=== PATIENT | female | born 1930 | race Caucasian/White ===

== ENCOUNTER → 2017-06-18 13:51 | Outpatient (CLI) | payer MEDICARE ==
[2016-08-25 13:46] VITALS: BMI 27.3
[~2017-06-18 13:51] MED LIST: ADOXA100 MG PO; ADVAIR 250/501 DISK INH; BAYER CHEWABLE81 MG PO; BETAPACE 120 M120 MG PO; CALCIUM OYS SHE1 TAB PO; COZAAR100 MG PO; EZFE 200200 MG PO; FESO4 PO; HYDROCODON-ACE1 EAC7 PO; ICAPS AREDS1 TAB.SA PO; K-DUR20 MEQ PO; LASIX20 MG PO; LASIX40 MG PO; LEVAQUIN250 MG PO; LEVOTHROID125 MCG PO; LIPITOR40 MG PO; METOPROLOL TAR100 MG PO; NORCO 7.5-3251 EACH PO; NORVASC5 MG PO; PACERONE100 MG PO; PACERONE200 MG PO; SAVAYSA PO; VITAMIN D31000 UNIT PO; ZOCOR40 MG PO
== END | disposition home or self-care (01) ==
LOC: D.MAMMO 11:00
DX: Z12.31 Encounter for screening mammogram for malignant neoplasm of breast (principal)

== ENCOUNTER → 2017-07-10 20:33 | Outpatient (CLI) | payer MEDICARE ==
[2016-08-25 13:46] VITALS: BMI 27.3
== END | disposition home or self-care (01) ==
LOC: D.MAMMO 13:30
DX: R92.8 Other abnormal and inconclusive findings on diagnostic imaging of breast (principal)

== ENCOUNTER 2017-08-16 13:06 | Emergency (ER) | payer MEDICARE ==
[2016-08-25 13:46] VITALS: BMI 27.3
== END 2017-08-16 15:58 | disposition home or self-care (01) ==
LOC: D.ER 13:06
DX: S16.1XXA Strain of muscle, fascia and tendon at neck level, initial encounter (principal); W19.XXXA Unspecified fall, initial encounter; Y93.89 Activity, other specified; Y92.029 Unspecified place in mobile home as the place of occurrence of the external cause; S09.90XA Unspecified injury of head, initial encounter

== ENCOUNTER → 2017-10-12 14:12 | Outpatient (CLI) | payer MEDICARE ==
[2016-08-25 13:46] VITALS: BMI 27.3
== END | disposition home or self-care (01) ==
LOC: D.MAMMO 09:30
DX: R92.8 Other abnormal and inconclusive findings on diagnostic imaging of breast (principal)

== ENCOUNTER 2017-10-26 12:41 | Emergency (ER) | payer MEDICARE ==
[2016-08-25 13:46] VITALS: BMI 27.3
[2017-10-26 13:37] LABS: BASOPHILS 0.1 % (0-2); EOSINOPHILS 0.4 % (0-7); HEMATOCRIT 40.1 % (36.0-48.0); HEMOGLOBIN 13.1 g/dL (12-16); IMMATURE GRANULOCYTES 0.1 % (0-5); LYMPHOCYTES 22.7 % (15-50); MCHC 32.7 g/dL (31.0-37.0); MCV 94.8 fL (80.0-100.0); MEAN PLATELET VOLUME 11.7 fL (7.4-10.4); MONOCYTES 8.9 % (2-11); NEUTROPHILS 67.8 % (40-80); PLATELET COUNT 133 10x3/uL (130-400); RBC 4.23 10x6/uL (4.00-5.40); RDW 15.2 % (11.5-14.5); WBC 7.1 10x3/uL (4.8-10.8)
[2017-10-26 14:04] LABS: ALBUMIN 3.8 g/dL (3.4-5.0); ALKALINE PHOSPHATASE 57 U/L (46-116); ALT (SGPT) 18 U/L (10-68); CALC OSMOLALITY 292 mosm/kg (275-300); CALCIUM 9.3 mg/dL (8.5-10.1); CARBON DIOXIDE 26.7 mmol/L (21.0-32.0); CHLORIDE - SERUM 104 mmol/L (98-107); CREATININE - SERUM 2.2 mg/dL (0.6-1.3); GLUCOSE 114 mg/dL (74-106); POTASSIUM - SERUM 4.7 mmol/L (3.5-5.1); SODIUM 141 mmol/L (136-145); UREA NITROGEN 44 mg/dL (7-18); eGFR NON AFRICAN AMERICAN 22 mL/min (90-120)
[2017-10-26 14:12] LABS: CREATINE KINASE 60 UL (21-215); PRO BNP 14827 pg/mL (0-450); TROPONIN-I < 0.017 ng/mL (0.000-0.060)
[2017-10-26 14:21] LABS: INR 2.05 (0.85-1.17); PROTIME 22.6 SECONDS (11.6-15.0)
== END 2017-10-26 15:07 | disposition home or self-care (01) ==
LOC: D.ER 12:41
PROVIDERS: Family Medicine; Nurse Practitioner Family
DX: R00.1 Bradycardia, unspecified (principal); T44.7X5A Adverse effect of beta-adrenoreceptor antagonists, initial encounter; Y92.019 Unspecified place in single-family (private) house as the place of occurrence of the external cause; I50.9 Heart failure, unspecified; Z86.79 Personal history of other diseases of the circulatory system; I44.0 Atrioventricular block, first degree

== ENCOUNTER 2017-12-24 09:37 | Day surgery (SDC) | payer MEDICARE ==
[2017-12-23 10:34] LABS: BASOPHILS 0.2 % (0-2); EOSINOPHILS 3.5 % (0-7); HEMATOCRIT 26.8 % (36.0-48.0); HEMOGLOBIN 8.4 g/dL (12-16); IMMATURE GRANULOCYTES 0.1 % (0-5); LYMPHOCYTES 28.3 % (15-50); MCH 29.2 pg (26.0-34.0); MCHC 31.3 g/dL (31.0-37.0); MCV 93.1 fL (80.0-100.0); MEAN PLATELET VOLUME 9.6 fL (7.4-10.4); MONOCYTES 8.1 % (2-11); NEUTROPHILS 59.8 % (40-80); RBC 2.88 10x6/uL (4.00-5.40); RDW 15.9 % (11.5-14.5)
[2017-12-23 10:35] LABS: PLATELET COUNT 216 10x3/uL (130-400)
[2017-12-23 11:23] LABS: ANION GAP 18.2 mmol/L (8-16); CALCIUM 9.3 mg/dL (8.5-10.1); CARBON DIOXIDE 21.5 mmol/L (21.0-32.0); CREATININE - SERUM 1.7 mg/dL (0.6-1.3); POTASSIUM - SERUM 3.7 mmol/L (3.5-5.1)
[~2017-12-24] VITALS: Ht 170.2 cm; Wt 70.3 kg
--- NOTE | ~2017-12-24 | OP ---
PATIENT NAME: CRIS RUANO MEDICAL RECORD: [id number] :31 LOCATION:[facility] ADMISSION DATE: SURGEON: ALVARADO SINGLETON DATE OF OPERATION: 12/24/2017 SURGEON: Alvarado Singleton DPM PREOPERATIVE DIAGNOSIS: Osteomyelitis, second metatarsal, right foot. POSTOPERATIVE DIAGNOSIS: Osteomyelitis, second metatarsal, right foot. PROCEDURE: Transmetatarsal amputation, right foot. ANESTHESIA: Local with monitored anesthesia care. HEMOSTASIS: Pneumatic ankle tourniquet inflated to 250 mmHg. ESTIMATED BLOOD LOSS: Minimal. MATERIALS: A 3-0 Vicryl, 3-0 nylon. INJECTABLES: A 20 cc of 0.5% bupivacaine preoperatively. The patient has longstanding history of an ulceration associated with the plantar surface of the right foot. On her most recent visit, the ulceration had deepened and bone was exposed. We have discussed with her the nature of this condition, the proposed procedure, risks and benefits were reviewed. Complications were discussed and her questions were answered. She was appropriately consented for the above-mentioned procedure. The patient has previously undergone a partial first ray amputation. This was done several years ago and healed up uneventfully. DESCRIPTION OF PROCEDURE: The patient was brought in the operating room and placed on the operating table in supine position. A timeout was called with Dr. Singleton, who identified the patient, the surgical site, and the surgery to be performed. Once appropriate anesthesia was obtained, the foot was prepped and draped in the usual aseptic manner. The pneumatic ankle tourniquet was inflated to 250 mmHg on the well-padded right ankle. Attention was directed to the distal aspect of the right foot where a full-thickness fishmouth incision was made at the level of the metatarsal heads. This incision was carried deep through soft tissue with care being taken to retract any vital, neurovascular structures. All bleeders were cauterized and tied as necessary. Utilizing a freer elevator and osteotome, the periosteum was reflected from the dorsal aspect of the residual first metatarsal and the second through fifth metatarsals. Next, utilizing the sagittal saw, each metatarsal was transected from dorsal distal to proximal plantar. The each individual metatarsal section was then removed. The soft tissue attachments were sharply dissected free and the forefoot was passed from the field and sent to pathology. The surgical site was then inspected for any remaining pathological tissue and none was noted. The metatarsal parabola was then remodeled with a sagittal saw as necessary to facilitate closure. The pneumatic ankle tourniquet was then OPERATIVE REPORT [id number] CRIS RUANO deflated and utilizing cautery and hand ties, all bleeders were appropriately ligated and cauterized. The surgical site was then irrigated with copious amounts of normal sterile saline via bulb syringe. The surgical site was then reinspected for any remaining necrotic tissue or purulent material and none was noted. The subQ and deeper structures were reapproximated and coapted utilizing 3-0 Vicryl. The skin was then reapproximated and coapted utilizing 4-0 and 3-0 nylon. A dressing consisting of Xeroform, 4 x 4's, Kerlix, and an Reyes bandage was applied to the right foot. The patient tolerated the procedure and anesthesia well. She left the operating room with vital signs stable and capillary refill time intact. The patient was discharged home with instructions to elevate the right foot. She has a walker and postop shoe to help offload the foot. I have discussed with her the importance of staying off the foot and we will follow up with her in 4 days. There are no complications with this procedure and she has my cell phone number for any after hour difficulties. TRANSINT:[id number] Voice Confirmation ID: [id number] DOCUMENT ID: [id number] ALVARADO SINGLETON at 1200 CC: [id number] DICTATION DATE: 12/24/17 164 HOSPITAL DIRECTOR: 12/24/17 1717 [facility] 12/24/17 [place] [id number]
[~2017-12-24 09:37] MED LIST changes: +COREG12.5 MG PO; +ELIQUIS2.5 MG PO; +FUROSEMIDE20 MG PO; +LEVOTHYROXINE112 MCG PO
[2017-12-24 10:50] VITALS: BP 122/70; Ht 170.2 cm; Wt 70.3 kg
== END 2017-12-24 15:03 | disposition home or self-care (01) ==
LOC: D.OPS 09:37 → D.PAN 11:30 → D.OPS 11:30
PROVIDERS: Anesthesiology
DX: M86.171 Other acute osteomyelitis, right ankle and foot (principal); Z01.812 Encounter for preprocedural laboratory examination

== ENCOUNTER 2018-03-16 09:26 | Outpatient (CLI) | payer MEDICARE ==
[~2018-03-16] VITALS: Ht 168.9 cm; Wt 79.1 kg
[2018-03-16 12:09] VITALS: Ht 168.9 cm; Wt 79.1 kg
== END 2018-03-16 16:50 | disposition home or self-care (01) ==
LOC: D.OPS 09:26
DX: D64.9 Anemia, unspecified (principal); Z01.812 Encounter for preprocedural laboratory examination

== ENCOUNTER 2018-05-11 11:46 | Day surgery (SDC) | payer MEDICARE ==
[~2018-05-11] VITALS: Ht 168.9 cm; Wt 76.8 kg
--- NOTE | ~2018-05-11 | OP ---
PATIENT NAME: CRIS RUANO MEDICAL RECORD: [id number] :31 LOCATION:[facility] ADMISSION DATE: SURGEON: LUIZA BUNN MD DATE OF OPERATION: 05/11/2018 PROCEDURE: Colonoscopy with snare polypectomy. Colonoscopy with polypectomy with hot biopsy forceps. CAREGIVER ASSISTED LIVING: Luiza Bunn MD SCOPE: Olympus video colonoscope. MEDICATIONS: Per TIVA anesthesia. The patient has atrial fibrillation, as part of her comorbidity profile, she received 220 mg of propofol IV throughout the procedure, O2 4 liters and after the procedure, received 500 mg of Flagyl as she had a significant polyp removed during this procedure. FINDINGS: Informed consent was given. The patient was made comfortable with the above medications. After reaching an adequate level of sedation by slow IV push, the patient was placed on her left side. The rectal exam revealed good sphincter tone, no fissures or fistulas were appreciated. No external skin tags were seen. The colonoscope was advanced with some difficulty to the cecum where the ileocecal valve and appendiceal orifice were identified. On withdrawal of the scope, mucosa was carefully inspected. The patient was noted to have pandiverticulosis without diverticulitis to a very small degree throughout the entire colon. Additionally, at 70 cm within the hepatic flexure, a 1-cm polyp was seen and removed with hot biopsy forceps technique. With further withdrawal of the scope, the patient was seen to have a 4 cm polyp at 20 cm within the colon, which was removed piecemeal with a snare. Not all of the polyp was removed, just some very small amount remained. This will need to be removed at another date. Of note, the patient had significant spasm, which could be associated with irritable bowel syndrome within the left side of the colon and very dense adhesions were seen in the pelvic area adding to the difficulty of this procedure. On retroflexion and final withdrawal of the scope, hemorrhoids were observed. The scope was then withdrawn. IMPRESSION: 1. Pandiverticulosis without diverticulitis to a small degree throughout the colon. 2. Adhesions very dense in the pelvic area adding to the difficulty of this procedure. 3. Marked spasm in the colon, most pronounced on the left side. 4. Two polyps removed during this procedure. The first at 70 cm within the colon at the hepatic flexure, 0.5 cm in size, removed with hot biopsy forcep technique. 5. A 4 cm polyp very hemorrhagic in appearance, removed piecemeal with the snare in the sigmoid colon at 20 cm. 6. Both internal and external hemorrhoids with very poor anal sphincter tone. PLAN: 1. No aspirin or anti-inflammatory drugs times 14 days. 2. We will call Dr. Liu to see if we can safely hold the Eliquis for 5 additional days. 3. Probiotics. 4. High fiber diet. OPERATIVE REPORT [id number] CRIS RUANO TRANSINT:[id number] Voice Confirmation ID: [id number] DOCUMENT ID: [id number] LUIZA BUNN MD at 1215 CC: MILDRED ATKINSON and ISSA LIU [id number] DICTATION DATE: 05/11/18 1603 ELECTRONICS INSTRUCTOR: 05/11/[address] [facility] 05/11/18 [place] [id number] [place] [address]
[2018-05-11 12:33] LABS: ANION GAP 15.3 mmol/L (8-16); CALCIUM 8.6 mg/dL (8.5-10.1); CARBON DIOXIDE 25.5 mmol/L (21.0-32.0); CREATININE - SERUM 1.6 mg/dL (0.6-1.3); POTASSIUM - SERUM 3.8 mmol/L (3.5-5.1)
[2018-05-11] MEDS ORDERED: BETAPACE 80 MG80 MG PO (12:36)
[2018-05-11] MEDS ORDERED: PROTONIX40 MG PO (12:37)
[2018-05-11 12:46] VITALS: Ht 168.9 cm; Wt 76.8 kg
[2018-05-11 13:33] LABS: APTT 30.2 SECONDS (22.8-39.4); INR 1.33 (0.85-1.17)
== END 2018-05-11 17:50 | disposition home or self-care (01) ==
LOC: D.OPS 11:46
PROVIDERS: Anesthesiology
DX: K57.30 Diverticulosis of large intestine without perforation or abscess without bleeding (principal); D12.3 Benign neoplasm of transverse colon; D12.5 Benign neoplasm of sigmoid colon; Z86.010 Personal history of colon polyps; I48.91 Unspecified atrial fibrillation; K58.9 Irritable bowel syndrome, unspecified; K64.8 Other hemorrhoids; K64.4 Residual hemorrhoidal skin tags; N73.6 Female pelvic peritoneal adhesions (postinfective); Z01.812 Encounter for preprocedural laboratory examination

== ENCOUNTER 2018-05-13 09:51 | Day surgery (SDC) | payer MEDICARE ==
[~2018-05-13] VITALS: Ht 168.9 cm; Wt 74.5 kg
--- NOTE | ~2018-05-13 | OP ---
PATIENT NAME: CRIS RUANO MEDICAL RECORD: [id number] :31 LOCATION:[facility] ADMISSION DATE: SURGEON: LUIZA BUNN MD DATE OF OPERATION: 05/13/2018 PROCEDURE: EGD with biopsy. THREAD SINGER: Luiza Bunn MD SCOPE: Olympus video gastroscope. MEDICATIONS: Per TIVA anesthesia. The indication for TIVA is the patient with atrial fibrillation, chronic obstructive lung disease, hypertension, and kidney problems. She is on Eliquis and aspirin. INDICATION FOR THE PROCEDURE: Guaiac-positive stool, melenic stool, and anemia with blood loss. FINDINGS: Informed consent was given. The patient was made comfortable with the above medications. After reaching an adequate level of sedation by slow IV push, the patient was placed on her left side. The endoscope was then advanced under direct visualization through the posterior pharyngeal area and advanced to the distal esophagus. At the distal esophageal area, erosions, erythema, and edema were appreciated. Biopsies were obtained. We then advanced the scope to the gastric area and explored the mucosa thoroughly. The patient was noted to first have a hiatal hernia, which was considered to be small and seen on direct and retroflex views. At the antral area, multiple small nonhemorrhagic gastric ulcers were appreciated and biopsies were obtained. Erosions were also noted. The duodenal bulb had inflammation as well as ulcerations present. The second portion of the duodenum had fairly normal tissue. On withdrawal of the scope, a biopsy was taken within the duodenal bulb at an ulcer surround. We also biopsied the antrum and the GE junction lower third. The scope was then withdrawn. IMPRESSION: 1. Erosive esophagitis. 2. Small hiatal hernia. 3. Erosive gastritis. 4. Multiple gastric ulcers at the antral area. 5. Duodenal bulbar nonhemorrhagic ulcers. 6. Normal tissue in the second portion of the duodenum. PLAN: 1. The patient should continue her Protonix at a dose of 40 mg p.o. q.a.m. and add famotidine 40 mg p.o. at bedtime. Repeat the EGD in 8 weeks to document healing of ulcers. 2. Reflux precautions should be followed stringently, both dietary and positional. No anti-inflammatory drugs. 3. We will contact Dr. Liu to see if the patient can hold her Eliquis and aspirin a couple more days. She has been off of it for 6 days, and 2 days ago, had a colonoscopy with removal of a very large 4-cm polyp. This is at risk for bleeding as well as the ulcers which were noted today. TRANSINT:[id number] Voice Confirmation ID: [id number] DOCUMENT ID: [id number] OPERATIVE REPORT [id number] CRIS RUANO BRENDA MD at 1215 CC: MILDRED ATKINSON and ISSA LIU [id number] DICTATION DATE: 05/13/18 1240 MOTORCYCLE REPAIR SHOP SUPERVISOR: 05/13/18 1323 [facility] 05/13/18 [place] [id number] [place] [address]
[~2018-05-13 09:51] MED LIST changes: +BETAPACE 80 MG80 MG PO; +PROTONIX40 MG PO
[2018-05-13 10:41] LABS: ANION GAP 15.3 mmol/L (8-16); CALCIUM 8.4 mg/dL (8.5-10.1); CARBON DIOXIDE 23.6 mmol/L (21.0-32.0); CREATININE - SERUM 1.6 mg/dL (0.6-1.3); POTASSIUM - SERUM 3.9 mmol/L (3.5-5.1)
[2018-05-13 10:54] LABS: BASOPHILS 0.4 % (0-2); EOSINOPHILS 4.3 % (0-7); HEMATOCRIT 28.7 % (36.0-48.0); HEMOGLOBIN 8.7 g/dL (12-16); IMMATURE GRANULOCYTES 0.2 % (0-5); LYMPHOCYTES 24.3 % (15-50); MCH 28.2 pg (26.0-34.0); MCHC 30.3 g/dL (31.0-37.0); MCV 93.2 fL (80.0-100.0); MEAN PLATELET VOLUME 9.1 fL (7.4-10.4); NEUTROPHILS 64.8 % (40-80); RBC 3.08 10x6/uL (4.00-5.40); RDW 20.2 % (11.5-14.5); WBC 5.4 10x3/uL (4.8-10.8)
[2018-05-13 10:57] VITALS: BP 144/47; Ht 168.9 cm; Wt 74.5 kg
[2018-05-13 11:02] LABS: PLATELET COUNT 128 10x3/uL (130-400)
== END 2018-05-13 13:45 | disposition home or self-care (01) ==
LOC: D.OPS 09:51
PROVIDERS: Anesthesiology
DX: K22.10 Ulcer of esophagus without bleeding (principal); K44.9 Diaphragmatic hernia without obstruction or gangrene; K29.00 Acute gastritis without bleeding; K25.9 Gastric ulcer, unspecified as acute or chronic, without hemorrhage or perforation; K26.9 Duodenal ulcer, unspecified as acute or chronic, without hemorrhage or perforation; I48.91 Unspecified atrial fibrillation; J44.9 Chronic obstructive pulmonary disease, unspecified; I10 Essential (primary) hypertension; N28.9 Disorder of kidney and ureter, unspecified; Z79.01 Long term (current) use of anticoagulants; Z79.82 Long term (current) use of aspirin; Z01.812 Encounter for preprocedural laboratory examination

== ENCOUNTER → 2018-06-09 10:07 | Outpatient (CLI) | payer MEDICARE ==
[2018-05-13 10:57] VITALS: BMI 26.1
[~2018-06-09 10:07] MED LIST changes: +GABAPENTIN100 MG PO; +K-TAB10 MEQ PO; +PEPCID40 MG PO
[2018-06-09 10:57] LABS: BASOPHILS 0.3 % (0-2); EOSINOPHILS 2.9 % (0-7); HEMATOCRIT 20.9 % (36.0-48.0); IMMATURE GRANULOCYTES 0.1 % (0-5); LYMPHOCYTES 18.3 % (15-50); MCH 26.9 pg (26.0-34.0); MCHC 31.1 g/dL (31.0-37.0); MCV 86.4 fL (80.0-100.0); MEAN PLATELET VOLUME 9.6 fL (7.4-10.4); MONOCYTES 8.4 % (2-11); PLATELET COUNT 145 10x3/uL (130-400); RBC 2.42 10x6/uL (4.00-5.40); RDW 17.7 % (11.5-14.5); WBC 7.2 10x3/uL (4.8-10.8)
[2018-06-09 11:05] LABS: HEMOGLOBIN 6.5 g/dL (12-16)
== END | disposition home or self-care (01) ==
LOC: D.LAB 08:00
PROVIDERS: Internal Medicine Gastroenterology
DX: R19.5 Other fecal abnormalities (principal)

== ENCOUNTER 2018-06-09 11:50 | Inpatient (IN) | payer MEDICARE ==
[~2018-06-09] VITALS: Ht 168.9 cm; Wt 77.6 kg
--- NOTE | ~2018-06-09 | HP ---
PATIENT: CRIS RUANO MEDICAL RECORD: [id number] ACCOUNT: [id number] LOCATION:[facility] D.2132 : 31 ADMISSION DATE: 06/09/18 PCP: MLIDRED ATKINSON MD HISTORY AND PHYSICAL EXAMINATION DATE OF ADMISSION: 06/09/2018 CHIEF COMPLAINT: Rectal bleeding. HISTORY OF PRESENT ILLNESS: The patient is an 88-year-old female who presents complaining of 9-day history of having rectal bleeding. The patient was hospitalized last month, in April. She had an EGD as well as a colonoscopy. During her colonoscopy, she had a polyp removed from the hepatic flexure. She also had a very large polyp removed from the sigmoid colon. She also had an EGD showing some erosive esophagitis and nonhemorrhagic ulcers in the gastric region as well. The patient reports, over the past several days, she has become increasingly weak and no energy. PAST MEDICAL HISTORY: The patient's past history is significant in that she has had right clavicle repair. She has had hysterectomy. She had cholecystectomy. She has had history of atrial fibrillation. She has also had COPD, hyperlipidemia, hypertension, gastroesophageal reflux, dependent edema, and hypothyroidism. ALLERGIES: SHE IS ALLERGIC TO SUCCINYL, SULFASALAZINE, ANTIHISTAMINES, DECONGESTANTS. FAMILY HISTORY: Father and mother of heart disease. Brother had coronary artery bypass grafting, he had CHF and COPD. Sister has CHF. SOCIAL HISTORY: The patient is nonsmoker and nondrinker. She is currently retired. She is not . REVIEW OF SYSTEMS: GENERAL: She denies any headache, seizure, or syncope. She denies change in visual or auditory acuity. PULMONARY: She does report increasing shortness of breath. CARDIOVASCULAR: She has had no chest pain, palpitation, PND, or orthopnea. GASTROINTESTINAL: She has had no chronic nausea or vomiting. She has had bright red blood per rectum. PHYSICAL EXAMINATION: VITAL SIGNS: Temperature is 97.9, her pulse is 55, respiratory rate is 18, and blood pressure is 111/63. HEENT: Her head is normocephalic. No lesions. Ears; TMs are clear. Eyes; pupils are equal, round, and reactive to light. Her extraocular movements are intact. Her nasal cavity, oral cavity, and oropharynx are clear. NECK: Supple. There is no adenopathy. HEART: Regular rate and rhythm. ABDOMEN: Soft. Bowel sounds are positive. Stool guaiac was positive. LABORATORY DATA: The patient's lab today revealed white count of 8, hemoglobin 6.7, hematocrit 22, and her platelets are 157. Sodium 140, potassium 4.5, chloride is 107, CO2 is 23.9, BUN is 50, and creatinine is 2.3. Urinalysis unremarkable. INR is 1.52. HISTORY AND PHYSICAL [id number] CRIS RUANO ASSESSMENT: 1. GI bleed. 2. Recent history of polypectomy of the hepatic as well as the sigmoid colon. 3. History of peptic ulcer disease. 4. History of atrial fibrillation. 5. Hyperlipidemia. 6. Hypertension. 7. Hypothyroidism. PLAN: The patient is admitted. We will transfuse her 2 units of packed red blood cells. Also, we will get serial H&Hs q. 6 hours. GI consultation will be obtained. The patient will need an EGD as well as a colonoscopy. Continue to follow this. TRANSINT:[id number] Voice Confirmation ID: [id number] DOCUMENT ID: [id number] MILDRED ATKINSON MD CC: [id number] DICTATION DATE: 06/09/181822 DIRECTOR PRODUCT MANAGEMENT: 06/09/18 190 ADM IN [facility] [address] [place] [address]
--- NOTE | ~2018-06-09 | DS ---
PATIENT:CRIS RUANO :32 MEDICAL RECORD: [id number] DISCHARGE SUMMARY ADMISSION DATE: 06/09/18 DISCHARGE DATE: DATE OF ADMISSION: 06/09/2018 DATE OF DISCHARGE: 06/11/2018 ADMISSION DIAGNOSES: A 9-day history of rectal bleeding, acute gastrointestinal bleed, recent history of polypectomy, history of peptic ulcer disease, atrial fibrillation, hyperlipidemia, hypertension, hypothyroidism. DISCHARGE DIAGNOSES: Acute gastrointestinal bleed. History as above, chronic atrial fibrillation, hyperlipidemia, hypertension, hypothyroidism. HOSPITAL COURSE: The patient was admitted with a hemoglobin of 6.7, hematocrit 22, very fatigued, was typed and crossed and transfused 2 units of packed red blood cells. GI was consulted. The patient underwent EGD with sclerotherapy, also flex sig, very friable mucosa in the cardia of the stomach, hemorrhagic ulceration. This was injected with epinephrine and Hemoclip placed. Sigmoid was performed as well. The patient has been stable after transfusion, is feeling much better. She is very anxious to go home. The patient is discharged home in stable and improved condition, Eliquis and aspirin held as per recommendations from GI with a high risk of rebleed if they are not held a minimum of 14 days. PHYSICAL EXAMINATION: VITAL SIGNS ON DISCHARGE: Temperature 97.7, blood pressure 116/93, heart rate 61, respirations 18, O2 sats 97% on room air. The patient is ambulating independently. HEART: Regular rate and rhythm. LUNGS: Clear. ABDOMEN: Soft. EXTREMITIES: Present times 4. NEUROLOGIC: Intact. Answers appropriately. LABORATORY DATA: Hemoglobin is 9.6 and hematocrit 30.1. DISPOSITION: The patient is discharged to home/independent living in significantly improved condition. DISCHARGE INSTRUCTIONS: She will follow up with Dr. Dorantes next week. Meds per med rec. We will resume her home medications with the exception of the Eliquis and aspirin. See chart for further details. Agree with assessments by consultants of GI. TRANSINT:[id number] Voice Confirmation ID: [id number] DOCUMENT ID: [id number] DISCHARGE SUMMARY REPORT [id number] CRIS RUANO EDWIN SYED DO at 0938 CC: [id number] DICTATION DATE: 06/11/18 08 FINAL INSTALLER INSPECTOR: 06/11/18 0908 ADM IN [facility] [address] [place] [address]
[~2018-06-09 11:50] MED LIST changes: -GABAPENTIN100 MG PO; -K-TAB10 MEQ PO; -PEPCID40 MG PO
[2018-06-09] MEDS ORDERED: PEPCID40 MG PO (12:28)
[2018-06-09] MEDS ORDERED: K-TAB10 MEQ PO (12:28)
[2018-06-09 12:29] LABS: BASOPHILS 0.2 % (0-2); EOSINOPHILS 2.9 % (0-7); IMMATURE GRANULOCYTES 0.1 % (0-5); LYMPHOCYTES 22.7 % (15-50); MCH 26.6 pg (26.0-34.0); MCHC 30.5 g/dL (31.0-37.0); MCV 87.3 fL (80.0-100.0); MEAN PLATELET VOLUME 9.7 fL (7.4-10.4); MONOCYTES 7.6 % (2-11); NEUTROPHILS 66.5 % (40-80); PLATELET COUNT 157 10x3/uL (130-400); RBC 2.52 10x6/uL (4.00-5.40); RDW 17.7 % (11.5-14.5)
[2018-06-09 12:41] LABS: HEMOGLOBIN 6.7 g/dL (12-16)
[2018-06-09 12:43] LABS: ALBUMIN 3.1 g/dL (3.4-5.0); ANION GAP 13.6 mmol/L (8-16); BILIRUBIN - TOTAL 0.31 mg/dL (0.2-1.3); CALCIUM 8.3 mg/dL (8.5-10.1); CARBON DIOXIDE 23.9 mmol/L (21.0-32.0); CREATININE - SERUM 2.3 mg/dL (0.6-1.3); POTASSIUM - SERUM 4.5 mmol/L (3.5-5.1); PROTEIN - SERUM 6.9 g/dL (6.4-8.2)
[2018-06-09 13:27] LABS: APPEARANCE CLEAR (CLEAR); BILIRUBIN NEGATIVE (NEGATIVE); COLOR YELLOW (YELLOW); GLUCOSE NEGATIVE (NEGATIVE); KETONE NEGATIVE (NEGATIVE); NITRITE NEGATIVE (NEGATIVE); PROTEIN TRACE mg/dL (NEGATIVE); UROBILINOGEN NORMAL (NORMAL)
[2018-06-09 13:28] LABS: BACTERIA FEW /hpf (NONE SEEN); EPITHELIAL CELLS 0-5 /hpf (0-5); RED CELLS - URINE OCC /hpf (0-5); WHITE CELLS - URINE OCC /hpf (0-5)
[2018-06-09 15:11] LABS: APTT 32.8 SECONDS (22.8-39.4); INR 1.52 (0.85-1.17); PROTIME 17.8 SECONDS (11.6-15.0)
[2018-06-09 20:00] VITALS: BP 133/51
[2018-06-09] MEDS ORDERED: GABAPENTIN100 MG PO (21:48)
[2018-06-10] VITALS (8 sets, daily range): BP systolic 122–137; BP diastolic 40–57; Ht 168.9 cm; Wt 77.6 kg
[2018-06-10 04:54] LABS: BASOPHILS 0.2 % (0-2); EOSINOPHILS 3.3 % (0-7); HEMATOCRIT 26.4 % (36.0-48.0); IMMATURE GRANULOCYTES 0.2 % (0-5); LYMPHOCYTES 25.5 % (15-50); MCH 26.2 pg (26.0-34.0); MCHC 31.1 g/dL (31.0-37.0); MEAN PLATELET VOLUME 9.5 fL (7.4-10.4); MONOCYTES 8.9 % (2-11); NEUTROPHILS 61.9 % (40-80); PLATELET COUNT 128 10x3/uL (130-400); RDW 17.8 % (11.5-14.5); WBC 6.1 10x3/uL (4.8-10.8)
[2018-06-10 05:05] LABS: RBC 3.13 10x6/uL (4.00-5.40)
[2018-06-10 05:06] LABS: HEMOGLOBIN 8.2 g/dL (12-16); MCV 84.3 fL (80.0-100.0)
[2018-06-10 05:16] LABS: ANION GAP 8.9 mmol/L (8-16); CALCIUM 8.5 mg/dL (8.5-10.1); CARBON DIOXIDE 28.8 mmol/L (21.0-32.0); CREATININE - SERUM 1.8 mg/dL (0.6-1.3)
[2018-06-10 05:32] LABS: POTASSIUM - SERUM 3.7 mmol/L (3.5-5.1)
[2018-06-11] VITALS: BP 122/49
[2018-06-11 04:00] VITALS: BP 137/53
[2018-06-11 05:39] LABS: BASOPHILS 0.3 % (0-2); EOSINOPHILS 3.1 % (0-7); HEMATOCRIT 30.1 % (36.0-48.0); HEMOGLOBIN 9.6 g/dL (12-16); IMMATURE GRANULOCYTES 0.3 % (0-5); LYMPHOCYTES 17.8 % (15-50); MCHC 31.9 g/dL (31.0-37.0); MCV 84.6 fL (80.0-100.0); MEAN PLATELET VOLUME 9.9 fL (7.4-10.4); MONOCYTES 8.5 % (2-11); PLATELET COUNT 117 10x3/uL (130-400); RBC 3.56 10x6/uL (4.00-5.40); RDW 17.1 % (11.5-14.5); WBC 7.6 10x3/uL (4.8-10.8)
[2018-06-11 06:09] LABS: CALCIUM 8.3 mg/dL (8.5-10.1); CARBON DIOXIDE 22.9 mmol/L (21.0-32.0); CREATININE - SERUM 1.7 mg/dL (0.6-1.3); POTASSIUM - SERUM 3.9 mmol/L (3.5-5.1)
[2018-06-11 07:59] VITALS: BP 116/93
== END 2018-06-11 11:12 | disposition home or self-care (01) | DRG 378 ==
LOC: D.ER 11:50 → D.M2 15:31 → D.EDHOLD 15:31 → D.M2 20:45
PROVIDERS: Emergency Medicine; Family Medicine; Internal Medicine Gastroenterology
PROC: 0DJD8ZZ Inspection of Lower Intestinal Tract, Via Natural or Artificial Opening Endoscopic (ICD-10-PCS; 2018-06-10)
PROC: 0W3P8ZZ Control Bleeding in Gastrointestinal Tract, Via Natural or Artificial Opening Endoscopic (ICD-10-PCS; 2018-06-10)
PROC: 3E0G8TZ Introduction of Destructive Agent into Upper GI, Via Natural or Artificial Opening Endoscopic (ICD-10-PCS; principal; 2018-06-10 12:30)
DX: K25.4 Chronic or unspecified gastric ulcer with hemorrhage (principal); D62 Acute posthemorrhagic anemia; D50.0 Iron deficiency anemia secondary to blood loss (chronic); K44.9 Diaphragmatic hernia without obstruction or gangrene; I48.2 Chronic atrial fibrillation; Z79.01 Long term (current) use of anticoagulants; E78.5 Hyperlipidemia, unspecified; I12.9 Hypertensive chronic kidney disease with stage 1 through stage 4 chronic kidney disease, or unspecified chronic kidney disease; N18.3 Chronic kidney disease, stage 3 (moderate); E03.9 Hypothyroidism, unspecified; J44.9 Chronic obstructive pulmonary disease, unspecified; K21.9 Gastro-esophageal reflux disease without esophagitis; K64.8 Other hemorrhoids

== ENCOUNTER 2018-09-07 10:24 | Day surgery (SDC) | payer MEDICARE ==
[~2018-09-07] VITALS: Ht 168.9 cm; Wt 79.1 kg
--- NOTE | ~2018-09-07 | OP ---
PATIENT NAME: CRIS RUANO MEDICAL RECORD: [id number] :31 LOCATION:[facility] ADMISSION DATE: SURGEON: EDWIN DELEON MD DATE OF OPERATION: 09/07/2018 PREOPERATIVE DIAGNOSIS: History of colon polyps with a complex polyp, which was a 4 cm polyp at 20 cm. POSTOPERATIVE DIAGNOSES: 1. History of colon polyps with a complex polyp, which was a 4 cm polyp at 20 cm with no evidence of recurrence or persistence of a polyp at 20 cm. 2. There was a 1.1 cm sessile polyp in the cecum. PROCEDURES: 1. Total colonoscopy to cecum. 2. Hot biopsy forceps polypectomy times 1. SURGEON: Edwin Deleon MD TELEMARKETING SUPERVISOR: None. BLOOD LOSS: Minimal. ANESTHESIA: IV sedation. COMPLICATIONS: None. The risks, possible complications and alternatives to procedure were explained to the patient. She elects to proceed. ENDOSCOPIC COURSE: The patient was conveyed to the endoscopy suite electively on 09/07/2018. IV sedation was induced by anesthesia staff. The patient was placed in the Mandujano position. A digital rectal examination was performed. A colonoscope was inserted through the anus. It was easily advanced to the cecum. The prep was adequate. I identified a polyp in the cecum that was very subtle and really was best seen with narrow band imaging. I withdrew the colonoscope. I dragged the folds. The pullback was greater than 35-minute pullback. I used direct imaging as well as narrow band imaging. I withdrew all the way into the rectum and performed a retroflexed view. I then readvanced all the way to the cecum, pulled all the way back to the anus, readvanced all the way to the cecum, pulled back all the way to the anus. I then went from 10 cm to 50cm, I passed the endoscope at least 10 times looking all over for the persistent or recurrent polyp and I was unable to identify it. I felt that further attempts in this elderly lady to try to find the polyp might lead to an endoscopic perforation and I elected to abandon the procedure. The endoscope was withdrawn under direct vision. The patient was then conveyed back to her room. I have reviewed the endoscopic findings with her and her relative. I was somewhat dissatisfied that we were unable to identify this polyp at [address] Bunn was able to remove the entire thing when she performed a snare polypectomy. TRANSINT:[id number] Voice Confirmation ID: [id number] DOCUMENT ID: [id number] OPERATIVE REPORT [id number] CRIS RUANO ROBERT MD at 1055 CC: MILDRED ATKINSON and ISABEL BUNN [id number] DICTATION DATE: 09/07/18 1507 ROTARY DRUM TANNER: 09/07/18 1647 [facility] 09/07/18 [place] [id number] [place] [id number]
--- NOTE | ~2018-09-07 | HP ---
PATIENT: CRIS RUANO MEDICAL RECORD: [id number] ACCOUNT: [id number] [facility] : 31 ADMISSION DATE: 09/07/18 PCP: MILDRED ATKINSON MD HISTORY AND PHYSICAL EXAMINATION CHIEF COMPLAINT: Colon polyp. HISTORY OF PRESENT ILLNESS: The patient has a 4-cm colon polyp at 20 cm. I am going to plan for a colonoscopy with endoscopic mucosal resection in conjunction with the argon plasma right of way manager. She has had no rectal bleeding. No anemia. ALLERGIES: Please see the nursing list. HOME MEDICINES: Please see the nursing list. SOCIAL HISTORY: Nonsmoker. 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 PHYSICAL EXAMINATION: GENERAL: The patient does not appear acutely ill. She does not appear chronically ill. VITAL SIGNS: Reviewed. EARS: External ears appear normal. EYES: Extraocular movements are intact. NECK: Trachea is midline. CHEST: No intercostal retractions. PULMONARY: Nonlabored, no stridor. IMPRESSION: Complex colon polyp, which is a 4-cm polyp at 20 cm. PLAN: Colonoscopy, polypectomy in conjunction with the argon plasma right of way manager. I am going to perform an endoscopic mucosal resection. TRANSINT:[id number] Voice Confirmation ID: [id number] DOCUMENT ID: [id number] EDWIN DELEON MD at 1522 CC: MILDRED ATKINSON, ISABEL CHEN and ISSA MOSS [id number] DICTATION DATE: 09/07/18 1154 CHEMICAL PLANT WORKER: 09/07/18 1221 [address] [place] [id number] [place] [address]
[~2018-09-07 10:24] MED LIST changes: +GABAPENTIN100 MG PO; +K-TAB10 MEQ PO; +PEPCID40 MG PO
[2018-09-07 10:51] LABS: BASOPHILS 0.2 % (0-2); EOSINOPHILS 2.9 % (0-7); HEMATOCRIT 31.6 % (36.0-48.0); HEMOGLOBIN 9.7 g/dL (12-16); LYMPHOCYTES 25.9 % (15-50); MCH 25.9 pg (26.0-34.0); MCHC 30.7 g/dL (31.0-37.0); MCV 84.5 fL (80.0-100.0); MEAN PLATELET VOLUME 9.4 fL (7.4-10.4); MONOCYTES 6.6 % (2-11); NEUTROPHILS 64.4 % (40-80); RBC 3.74 10x6/uL (4.00-5.40); RDW 18.4 % (11.5-14.5); WBC 4.8 10x3/uL (4.8-10.8)
[2018-09-07 10:52] LABS: PLATELET COUNT 147 10x3/uL (130-400)
[2018-09-07 11:02] LABS: ANION GAP 15.1 mmol/L (8-16); CALCIUM 9.2 mg/dL (8.5-10.1); CARBON DIOXIDE 25.9 mmol/L (21.0-32.0); CREATININE - SERUM 1.6 mg/dL (0.6-1.3)
[2018-09-07 11:37] VITALS: BP 134/65; Ht 168.9 cm; Wt 79.1 kg
== END 2018-09-07 14:40 | disposition home or self-care (01) ==
LOC: D.OPS 10:24
PROVIDERS: Anesthesiology
DX: K63.5 Polyp of colon (principal); J45.990 Exercise induced bronchospasm; I10 Essential (primary) hypertension; I48.91 Unspecified atrial fibrillation; K21.9 Gastro-esophageal reflux disease without esophagitis; M19.90 Unspecified osteoarthritis, unspecified site; Z01.812 Encounter for preprocedural laboratory examination

== ENCOUNTER 2018-11-02 06:51 | Day surgery (SDC) | payer MEDICARE ==
[~2018-11-02] VITALS: Ht 168.9 cm; Wt 79.5 kg
--- NOTE | ~2018-11-02 | OP ---
PATIENT NAME: CRIS RUANO MEDICAL RECORD: [id number] :31 LOCATION:[facility] AD[facility]ION DATE: SURGEON: LUIZA BUNN MD DATE OF OPERATION: 11/02/2018 PROCEDURE: EGD without biopsy. COLLAR BASTER JUMPBASTING: Luiza Bunn MD SCOPE: An Olympus video gastroscope. MEDICATIONS: Per TIVA anesthesia. The patient has multiple comorbidities including advanced age. She received 50 mg of propofol for this procedure, O2 at 4 liters. INDICATION FOR THE PROCEDURE: An acute gastric ulcer, which was hemorrhagic. This was discovered on an EGD, which was done on 06/10/2018. This procedure was done secondary to the patient's acute blood loss, melenic stool, and anemia. During the procedure, she was found to have a normal esophagus, a small hiatal hernia, a hemorrhagic ulceration in the gastric cardia, which was injected with 0.5 cc of 1:10,000 epinephrine and a Hemoclip was placed with good result. She also was noted at that time to have antral ulcerations, which had healed as well as healed duodenal bulbar ulcerations, which were seen at an earlier EGD. The second part of the duodenum had normal mucosa, and the patient did have some hemorrhagic duodenitis noted within the C-loop of the duodenum during this same procedure. She was treated with Protonix as well as famotidine and is presenting today for repeat EGD to document healing of all ulcerations. She is not at this time taking her Eliquis or aspirin, and she will have an EGD this date. FINDINGS: Informed consent was given. The patient was made comfortable with the above medications. After reaching an adequate level of sedation by slow IV push, the patient was placed on her left side. The endoscope was then advanced under direct visualization through the posterior pharyngeal area and advanced to the distal esophagus. Only minimal inflammation was seen in the distal esophageal area. No biopsies were felt necessary. The patient was seen to have a small hiatal hernia noted both on direct and retroflex views. On entering the stomach, the site of the previously documented hemorrhagic ulceration in the cardia was located. The patient still has the Hemoclip in place and no inflammation, erythema, edema, or ulceration was seen at the area of the Hemoclip. Complete healing has occurred. The clip has not yet sloughed off. We then continued to inspect the gastric mucosa and at the antral area, the patient had minimal inflammation, but no ulcers or erosions were appreciated. The duodenal bulb to the second portion was normal with bile present. The scope was then withdrawn. IMPRESSION: 1. Mild distal esophagitis due to refluxing. The inflammation was minimal. No biopsy necessary. 2. Small hiatal hernia. 3. Only mild inflammation noted within the stomach. The previous hemorrhagic ulceration in the cardia, which required sclerotherapy and placement of a Hemoclip, has seen to have healed completely. The Hemoclip is still intact. 4. Fairly normal mucosa within the duodenum. OPERATIVE REPORT [id number] CRIS RUANO PLAN: 1. The patient can stop her pantoprazole. 2. Take the famotidine, which was 40 mg at bedtime and change this to 20 mg in the morning, 20 at night. This is maintenance for refluxing and prevention of further ulcerations. 3. Use caution with anti-inflammatory drugs. 4. Return to clinic on a p.r.n. basis. TRANSINT:[id number] Voice Confirmation ID: [id number] DOCUMENT ID: [id number] LUIZA BUNN MD CC: MILDRED ATKINSON [id number] DICTATION DATE: 11/02/18 0945 FUR STRETCHER: 11/02/[address] [facility] 11/02/18 [place] [id number] [place] [address]
[2018-11-02 07:25] LABS: ANION GAP 14.1 mmol/L (8-16); BASOPHILS 0.3 % (0-2); CALCIUM 8.5 mg/dL (8.5-10.1); CARBON DIOXIDE 26.8 mmol/L (21.0-32.0); CREATININE - SERUM 1.9 mg/dL (0.6-1.3); EOSINOPHILS 3.5 % (0-7); HEMATOCRIT 30.7 % (36.0-48.0); HEMOGLOBIN 9.5 g/dL (12-16); IMMATURE GRANULOCYTES 0.2 % (0-5); LYMPHOCYTES 24.2 % (15-50); MCHC 30.9 g/dL (31.0-37.0); MCV 83.9 fL (80.0-100.0); MEAN PLATELET VOLUME 10.1 fL (7.4-10.4); MONOCYTES 8.5 % (2-11); NEUTROPHILS 63.3 % (40-80); PLATELET COUNT 148 10x3/uL (130-400); POTASSIUM - SERUM 3.9 mmol/L (3.5-5.1); RBC 3.66 10x6/uL (4.00-5.40); RDW 16.5 % (11.5-14.5)
[2018-11-02 07:37] VITALS: Ht 168.9 cm; Wt 79.5 kg
--- NOTE | 2018-11-02 10:35 | NUR ---
DC INSTRUCTIONS GIVEN TO PT/CAREGIVER. STATE UNDERSTANDING. DC'D IV CATH FULLY INTACT.
--- NOTE | 2018-11-02 10:52 | NUR ---
PT LEFT UNIT VIA WC AT 1050
== END 2018-11-02 10:50 | disposition home or self-care (01) ==
LOC: D.OPS 06:51
PROVIDERS: Anesthesiology
DX: K20.9 Esophagitis, unspecified (principal); K44.9 Diaphragmatic hernia without obstruction or gangrene

== ENCOUNTER 2019-01-26 09:18 | Emergency (ER) | payer MEDICARE ==
[~2019-01-26] VITALS: Ht 168.9 cm; Wt 86.4 kg
[2019-01-26 09:37] VITALS: Ht 168.9 cm; Wt 86.4 kg
[2019-01-26] MEDS ORDERED: CYCLOBENZAPRINE10 MG PO (11:26)
[2019-01-26] MEDS ORDERED: MEDROL DOSE PACK4 MG PO (11:26)
[2019-01-26] MEDS ORDERED: ACETAMINOPHEN500 M1 PO (11:26)
[2019-01-26 13:46] VITALS: BP 150/63
== END 2019-01-26 13:46 | disposition home or self-care (01) ==
LOC: D.ER 09:18
DX: M70.22 Olecranon bursitis, left elbow (principal); Y93.89 Activity, other specified

== ENCOUNTER 2019-06-17 08:24 | Inpatient (IN) | payer MEDICARE ==
[~2019-06-17] VITALS: Ht 168.9 cm; Wt 85.1 kg
[~2019-06-17 08:24] MED LIST changes: +ACETAMINOPHEN500 M1 PO; +CYCLOBENZAPRINE10 MG PO; +MEDROL DOSE PACK4 MG PO
[2019-06-17] MEDS ORDERED: CENTRUM SILVER1 EAC3 PO (08:52)
[2019-06-17 09:12] LABS: BASOPHILS 0.1 % (0-2); EOSINOPHILS 1.2 % (0-7); HEMATOCRIT 31.7 % (36.0-48.0); HEMOGLOBIN 9.5 g/dL (12-16); IMMATURE GRANULOCYTES 0.3 % (0-5); LYMPHOCYTES 13.4 % (15-50); MCH 30.8 pg (26.0-34.0); MCV 102.9 fL (80.0-100.0); MEAN PLATELET VOLUME 9.8 fL (7.4-10.4); PLATELET COUNT 200 10x3/uL (130-400); RBC 3.08 10x6/uL (4.00-5.40); RDW 16.5 % (11.5-14.5); WBC 11.7 10x3/uL (4.8-10.8)
[2019-06-17 09:15] VITALS: BP 126/51
[2019-06-17 09:24] LABS: ALBUMIN 2.9 g/dL (3.4-5.0); ALKALINE PHOSPHATASE 71 U/L (46-116); ALT (SGPT) 20 U/L (10-68); BILIRUBIN - TOTAL 0.44 mg/dL (0.2-1.3); CALC OSMOLALITY 294 mosm/kg (275-300); CALCIUM 8.5 mg/dL (8.5-10.1); CHLORIDE - SERUM 109 mmol/L (98-107); CREATININE - SERUM 1.6 mg/dL (0.6-1.3); GLUCOSE 102 mg/dL (74-106); POTASSIUM - SERUM 4.3 mmol/L (3.5-5.1); SODIUM 143 mmol/L (136-145); UREA NITROGEN 41 mg/dL (7-18); eGFR NON AFRICAN AMERICAN 32 mL/min (90-120)
[2019-06-17 09:29] LABS: APTT 24.6 SECONDS (22.8-39.4); INR 1.08 (0.85-1.17); PROTIME 13.5 SECONDS (11.6-15.0)
[2019-06-17 09:34] LABS: CKMB 1.5 U/L (0.0-3.6); CREATINE KINASE 52 UL (21-215); MAGNESIUM - SERUM 2.2 mg/dL (1.8-2.4); TROPONIN-I < 0.017 ng/mL (0.000-0.060)
[2019-06-17 09:55] LABS: THYROID STIMULATING HORMONE 33.15 uIU/mL (0.36-3.74)
[2019-06-17 10:23] VITALS: BP 138/48
--- NOTE | 2019-06-17 11:12 | NUR ---
REPORT CALLED TO LALY ROE BY SBAR FORMAT
--- NOTE | 2019-06-17 11:25 | NUR ---
TRANSPORTED TO ROOM #2118, CONDITION STABLE
--- NOTE | 2019-06-17 11:35 | NUR ---
RECEIVED PT TO ROOM 2117 VIA STRETCHER FROM ICU AAOX4 RESP UNLABORED SKIN W/D COLOR WNL DENIES ANY PAIN AT THIS TIME GENERALIZED WEAKNESS NOTED WILL CONTINUE TO MONITOR
[2019-06-17 13:19] VITALS: BP 113/47
--- NOTE | 2019-06-17 14:05 | MORECARE ---
CASE MANAGEMENT DISCHARGE SUMMARY PATIENT: CRIS RUANO UNIT: [id number] ADM DATE: 06/17/19 AGE: 89 : 31 SEX: F ROOM/BED: D.3370 AUTHOR: BIPIN MARIE PHYSICIAN: REFERRING PHYSICIAN: COSME MEADOWS MD DATE OF SERVICE: 06/17/19 Discharge Plan Patient Name: CRIS RUANO [facility] [facility] 1930 Planned Disposition: Home Anticipated Discharge Date: 06/20/19 Discharge Date: Expected LOS: 3 Initial Reviewer: [email or web address] Initial Review Date: 06/17/2019 Generated: 06/17/19 3:05 pm DCPIA - Discharge Planning Initial Assessment Updated by [id number]: Elidia Farah on 06/17/19 2:03 pm * Is the patient Alert and Oriented? Yes * How many steps to enter\exit or inside your home? none * PCP Dr. Dorantes * Pharmacy [facility] on [address] * Preadmission Environment [facility] * Facility Name [facility] * ADLs Independent * Equipment Cane Rolling Walker * List name and contact numbers for known caregivers / representatives who currently or will assist patient after discharge: Mahogany Barger [facility] [place] - [phone] Xena Dumont [facility] - [phone] * Verbal permission to speak to the caregivers and representatives has been obtained from the patient. Yes * Community resources currently utilized Private Duty Care * Please name any agencies selected above. Private cg that assists with laundry, transportation, and shopping needs. * Additional services required to return to the preadmission environment? No * Can the patient safely return to the preadmission environment? Yes * Has this patient been hospitalized within the prior 30 days at any hospital? No Patient Name: CRIS RUANO Page 47136 at 1405 All edits/amendments must be made on the electronic document DICTATION DATE: 06/17/19 1405 PART TIME RECEPTIONIST: NARCISO 06/17/19 1405 RPT#: [id number] DC DATE: STATUS: ADM IN [facility] [address] [place] [address] END OF REPORT
[2019-06-17 14:18] VITALS: BP 113/67; BMI 29.8
--- NOTE | 2019-06-17 14:18 | MORECARE ---
CASE MANAGEMENT DISCHARGE SUMMARY PATIENT: CRIS RUANO UNIT: [id number] ADM DATE: 06/17/19 AGE: 89 : 31 SEX: F ROOM/BED: D.2024 AUTHOR: BIPIN MARIE PHYSICIAN: REFERRING PHYSICIAN: COSME MEADOWS MD DATE OF SERVICE: 06/17/19 Discharge Plan Patient Name: CRIS RUANO Facility: [facility]:[place] : 1930 Planned Disposition: Home Anticipated Discharge Date: 06/20/19 Discharge Date: Expected LOS: 3 Initial Reviewer: [email or web address] Initial Review Date: 06/17/2019 Generated: 06/17/19 3:18 pm DCP- Discharge Planning Updated by [email or web address]: Elidia Farah on 06/17/19 1:[address] DC PLAN: Return to [facility] ANTICIPATED DC NEEDS: Denied dc needs. CM met with patient and her cg, Mahogany Barger to complete initial dc planning assessment. CM educated patient on the CM role and verbal consent given by patient to complete assessment. CM verified patient's address, phone number, and emergency contact phone numbers. Patient lives at [facility] alone. She has a caregiver that assists her with laundry, transportation, and shopping needs. At discharge patient plans to return to [facility] and feels this is a safe discharge. CM discussed availability of home health, rehab services, and medical equipment. Patient denied known discharge needs at this time. Patient reports Mahogany Barger will transport her home at time of discharge. CM will continue to follow and will assist as needed with dc plans/needs. Elidia Farah RN, [facility] DCPIA - Discharge Planning Initial Assessment Updated by [email or web address]: Elidia Farah on 06/17/19 2:03 pm * Is the patient Alert and Oriented? Yes * How many steps to enter\exit or inside your home? none * PCP Dr. Dorantes * Pharmacy [facility] on [address] * Preadmission Environment Independent [facility] Apartment * Facility Name [facility] * ADLs Independent * Equipment Cane Rolling Walker * List name and contact numbers for known caregivers / representatives who currently or will assist patient after discharge: Mahogany Barger - - [phone] Xena watt [phone] * Verbal permission to speak to the caregivers and representatives has been obtained from the patient. Yes * Community resources currently utilized Private Duty Care * Please name any agencies selected above. Private cg that assists with laundry, transportation, and shopping needs. * Additional services required to return to the preadmission environment? No * Can the patient safely return to the preadmission environment? Yes * Has this patient been hospitalized within the prior 30 days at any hospital? No Last DP export: 06/17/19 1:05 p Patient Name: CRIS RUANO Page [phone] at 1418 All edits/amendments must be made on the electronic document DICTATION DATE: 06/17/191417 TEACHING SPECIALISTS: NARCISO 06/17/191417 RPT#: [id number] DC DATE: STATUS: ADM IN [facility] [address] [place] [address] END OF REPORT
[2019-06-17 15:17] VITALS: Ht 168.9 cm; Wt 85.1 kg
[2019-06-17 17:58] VITALS: BP 155/66
--- NOTE | 2019-06-17 20:00 | NUR ---
INITIAL ROUNDS AND ASSESSMENT COMPLETED. PT RESTING IN BED. ALERT/ORIENTED. DENIES PAIN OR DISCOMFORT. CAF/74 PER TELEMETRY. REVIEWED MEDS PT WILL BE RECIEVING. SHE IS CONCERNED ABOUT BEING PLACED ON ELIQUIS. EXPLAINED THAT THIS WILL HELP WITH THE AFIB. PT STATES IN THE PAST SHE TOOK ELIQUIS AND NEARLY "BLED TO ". PT STATES SHE WILL TAKE THE MED TONIGHT, BUT WILL MAKE SURE HER MD KNOWS HER HISTORY WITH THIS DRUG TOMORROW. EXPLAINED THAT PT IS ONLY TAKING AN INITIAL DOSE AND THEN SHE CAN REVIEW BENEFITS/RISKS IN AM. FALL PRECAUTIONS IN PLACE FOR ASSISTANCE TO BATHROOM. CALL LIGHT IN REACH.
[2019-06-17 20:10] VITALS: BP 141/55
[2019-06-18 00:05] VITALS: BP 126/72
[2019-06-18 04:10] VITALS: BP 134/68
[2019-06-18 05:08] LABS: BASOPHILS 0.1 % (0-2); EOSINOPHILS 1.5 % (0-7); HEMATOCRIT 28.5 % (36.0-48.0); HEMOGLOBIN 8.7 g/dL (12-16); IMMATURE GRANULOCYTES 0.2 % (0-5); LYMPHOCYTES 14.9 % (15-50); MCH 30.5 pg (26.0-34.0); MCHC 30.5 g/dL (31.0-37.0); MEAN PLATELET VOLUME 9.6 fL (7.4-10.4); MONOCYTES 9.6 % (2-11); NEUTROPHILS 73.7 % (40-80); PLATELET COUNT 174 10x3/uL (130-400); RBC 2.85 10x6/uL (4.00-5.40); RDW 16.3 % (11.5-14.5); WBC 9.7 10x3/uL (4.8-10.8)
--- NOTE | 2019-06-18 05:20 | NUR ---
SPECIMEN CUP AND COLLECTION CONTAINER IN ROOM WITH PATIENT INSTRUCTED ON NEED FOR URINE SPECIMEN.
[2019-06-18 05:25] LABS: ANION GAP 12.4 mmol/L (8-16); CALCIUM 8.2 mg/dL (8.5-10.1); CARBON DIOXIDE 27.5 mmol/L (21.0-32.0); CREATININE - SERUM 1.5 mg/dL (0.6-1.3); MAGNESIUM - SERUM 2.3 mg/dL (1.8-2.4); PHOSPHOROUS 3.5 mg/dL (2.5-4.9); POTASSIUM - SERUM 3.9 mmol/L (3.5-5.1); URIC ACID 11.7 mg/dL (2.6-7.2)
[2019-06-18 09:17] VITALS: BP 128/74
[2019-06-18] MEDS ORDERED: ELIQUIS5 MG PO (11:10)
[2019-06-18] MEDS ORDERED: BETAPACE 80 MG80 MG PO (11:10)
--- NOTE | 2019-06-18 13:30 | NUR ---
IV AND TELEMETRY DCD. DC PLANS GIVEN. UNDERSTANDING VOICED. ESCORTED TO CAR BY W/C.
--- NOTE | 2019-06-20 08:55 | MORECARE ---
CASE MANAGEMENT DISCHARGE SUMMARY PATIENT: CRIS RUANO UNIT: [id number] ADM DATE: 06/17/19 AGE: 89 : 31 SEX: F ROOM/BED: D.5022 AUTHOR: FRANK,DOC PHYSICIAN: REFERRING PHYSICIAN: COSME MEADOWS MD DATE OF SERVICE: 06/20/19 Discharge Plan Patient Name: CRIS RUANO Facility[facility]:[place] : 1930 Planned Disposition: Home Anticipated Discharge Date: 06/18/19 Discharge Date: 06/18/2019 Expected LOS: 1 Initial Reviewer: [email or web address] Initial Review Date: 06/17/2019 Generated: 06/20/19 9:55 am DCP- Discharge Planning Updated by [email or web address]: Elidia Farah on 06/17/19 1:[address] DC PLAN: Return to [facility] ANTICIPATED DC NEEDS: Denied dc needs. CM met with patient and her cg, Mahogany Barger to complete initial dc planning assessment. CM educated patient on the CM role and verbal consent given by patient to complete assessment. CM verified patient's address, phone number, and emergency contact phone numbers. Patient lives at [facility] alone. She has a caregiver that assists her with laundry, transportation, and shopping needs. At discharge patient plans to return to [facility] and feels this is a safe discharge. CM discussed availability of home health, rehab services, and medical equipment. Patient denied known discharge needs at this time. Patient reports Mahogany Barger will transport her home at time of discharge. CM will continue to follow and will assist as needed with dc plans/needs. Elidia Farah RN, [facility] DCPIA - Discharge Planning Initial Assessment Updated by [email or web address]: Elidia Farah on 06/17/19 2:03 pm * Is the patient Alert and Oriented? Yes * How many steps to enter\exit or inside your home? none * PCP Dr. Dorantes * Pharmacy [facility] on [address] * Preadmission Environment Independent [facility] * Facility Name [facility] * ADLs Independent * Equipment Cane Rolling Walker * List name and contact numbers for known caregivers / representatives who currently or will assist patient after discharge: Mahogany Barger - - [phone] Xena watt - [phone] * Verbal permission to speak to the caregivers and representatives has been obtained from the patient. Yes * Community resources currently utilized Private Duty Care * Please name any agencies selected above. Private cg that assists with laundry, transportation, and shopping needs. * Additional services required to return to the preadmission environment? No * Can the patient safely return to the preadmission environment? Yes * Has this patient been hospitalized within the prior 30 days at any hospital? No Last DP export: 06/17/19 1:18 p Patient Name: CRIS RUANO Page [phone] at 0855 All edits/amendments must be made on the electronic document DICTATION DATE: 06/20/19854 PALLIATIVE CARE PHYSICIAN: NARCISO 06/20/1954 RPT#: [id number] DC DATE:06/18/19 STATUS: DIS IN [facility] [address] [place] [address] END OF REPORT
--- NOTE | 2019-06-20 14:34 | CN ---
PATIENT NAME:CRIS VALDES MEDICAL RECORD: [id number] : 32 LOCATION:D. D.2118 ADMIT DATE: 06/17/19 ACCOUNT: [id number] CONSULTING PHYSICIAN: ISSA MOSS MD REFERRING PHYSICIAN: COSME MEADOWS MD DATE OF CONSULTATION: 06/17/2019 CARDIOLOGY CONSULTATION DIAGNOSES: 1. Shortness of breath, dyspnea on exertion. 2. Chest pain. 3. Angina. 4. Atrial fibrillation. 5. Hypertension. 6. Valvular heart disease, mitral regurgitation. 7. Hyperlipidemia. 8. Cardiomyopathy. 9. Anemia. 10. Renal insufficiency. HISTORY OF PRESENT ILLNESS: Mrs. Valdes presents with shortness of breath, dyspnea on exertion, found to have mild pulmonary edema, found to be in atrial fibrillation. She has a history of atrial fibrillation. She was maintained in sinus rhythm on sotalol 40 mg b.i.d. The last time she went out of rhythm. She received ibutilide and successfully converted her to sinus rhythm, this was over a year ago. This is the first time since then she has had recurrences of the atrial fibrillation. PHYSICAL EXAMINATION: CONSTITUTIONAL/GENERAL APPEARANCE: Well nourished, well developed, appears stated age. EYES: Lids and conjunctivae noninjected. No discharge. No pallor. ENT: Lips within normal limit. No cyanosis. No pallor. NECK: Carotid arteries, bilateral normal upstroke. No bruits. No thrills. No jugular venous pressure or distention. CERVICAL LYMPH NODES: Nontender. Nonenlarged. THYROID: Not enlarged. No nodules. CARDIOVASCULAR: Heart is irregularly irregular with atrial fibrillation. RESPIRATORY: Respiratory effort, unlabored. Normal curvature. No thoracic deformity. No chest wall tenderness. Percussion, resonant. Auscultation, clear. No wheezes, no rales, no rhonchi. ABDOMEN: Soft, nondistended, nontender. No abdominal pain, no vomiting and normal appetite. MUSCULOSKELETAL: No joint tenderness, normal gait, normal tone. SKIN: Warm and dry. OVERALL IMPRESSION: Atrial fibrillation, most likely present for 2 days. We will start her on Eliquis. We will try to give her ibutilide after a bolus of magnesium to see if this successfully cardiovert her, otherwise, we will use DC cardioversion. TRANSINT:[id number] Voice Confirmation ID: [id number] DOCUMENT ID: [id number] CONSULT REPORT [id number] CRIS VALDES JEFFREY MD at 1434 CC: [id number] DICTATION DATE: 06/17/19 1516 DESPATCHING AND RECEIVING CLERK: 06/18/19 0114 DIS IN 06/18/19 [facility] [address] [place] [id number]
--- NOTE | 2019-06-20 14:34 | EC ---
PATIENT:CRIS RUANO DATE OF SERVICE: 06/17/19 SEX: F MEDICAL RECORD: [id number] DATE OF : [birth year] LOCATION:D.M2 D.211 AGE OF PATIENT: 89 ADMISSION DATE: 06/17/19 REFERRING PHYSICIAN: INTERPRETING PHYSICIAN: ISSA LIU MD ECHOCARDIOGRAM REPORT ECHO CHARGES 4 ECHO COMPLETE Date: 06/17/19 CLINICAL DIAGNOSIS: AF ECHOCARDIOGRAPHIC MEASUREMENTS (adult normal given) AC root (d.<3.7cm) 2.2 cm LV Septum d (<1.2 cm> 1.2 cm Valve Excursion 1.6 cm LV Septum (systole) 1.4 cm Left Atria (s.<4.0cm> 4.3 cm LVPW d(<1.2cm) 1.1 cm RV (d.<2.3cm) 2.4 cm LVPW (sytole) 1.4 cm LV diastole(<5.6CM) 4.5 cm MV E-F(>70mm/sec) cm LV systole 3.6 cm LVOT Diameter 1.6 cm MV exc.(>10mm) cm Est.ejection fraction (50-75%) % DOPPLER: LVIT cm/sec A 33 cm/sec E 74 cm/sec LA cm/sec RVSP 27.6 mmHg LVOT 83 cm/sec AOP1/2T m/s Asc. Ao 146 cm/sec RVOT 73 cm/sec RA cm/sec PA 96 cm/sec AV Gradient Peak 8.5 mmHg AV Mean 4.7 mmHg AV Area 1.1 cm MV Gradient Peak 2.6 mmHg MV Mean 1.0 mmHg MV Area cm COMMENTS: Orchestra Director: [facility] Copyholder: 1 Dr. Liu TAPE# PACS Pericardial Effusion N DATE OF SERVICE: 06/17/2019 FINDINGS: 1. Left ventricular chamber size is within normal limits. Left ventricular systolic function is lower limits of normal to mildly depressed at 45% to 50%. 2. Left atrium is enlarged at 4.3 cm. Right atrium and right ventricular chamber sizes are as well mildly dilated. 3. Valvular structures have normal structure and motion. 4. Doppler interrogation reveals mild mitral regurgitation, trace tricuspid regurgitation, no other valvular insufficiency or stenosis. Pulmonary systolic ECHOCARDIOGRAM REPORT [id number] CRIS RUANO pressure estimated 28 mmHg. 5. No evidence of pericardial effusion or left ventricular thrombus. TRANSINT:[id number] Voice Confirmation ID: [id number] DOCUMENT ID: [id number] ISSA LIU MD at 1434 CC: [id number] DICTATION DATE: 06/17/199 MACHINE FILLER SERVICER: 06/17/19 2350 DIS IN 06/18/19 [facility] [address] [place] [id number]
== END 2019-06-18 13:31 | disposition home or self-care (01) | DRG 291 ==
LOC: D.ER 08:24 → D.M2 10:34 → D.SDCHOLD 14:50 → D.M2 06-18 13:31
PROVIDERS: Emergency Medicine; ADMIT Internal Medicine Nephrology; ATTEND Internal Medicine Nephrology
DX: I13.2 Hypertensive heart and chronic kidney disease with heart failure and with stage 5 chronic kidney disease, or end stage renal disease (principal); N18.6 End stage renal disease; I50.23 Acute on chronic systolic (congestive) heart failure; N17.9 Acute kidney failure, unspecified; R06.00 Dyspnea, unspecified; I48.91 Unspecified atrial fibrillation; I10 Essential (primary) hypertension; J44.9 Chronic obstructive pulmonary disease, unspecified; D64.9 Anemia, unspecified; E86.0 Dehydration; E03.9 Hypothyroidism, unspecified

== ENCOUNTER 2019-06-22 09:49 | Outpatient (CLI) | payer MEDICARE ==
[2019-06-17 15:17] VITALS: BMI 29.8
[~2019-06-22 09:49] MED LIST changes: +CENTRUM SILVER1 EAC3 PO; +ELIQUIS5 MG PO
[2019-06-22] MEDS ORDERED: ELIQUIS2.5 MG PO (10:10)
[2019-06-22] MEDS ORDERED: ADVAIR 250/501 DISK INH (10:11)
[2019-06-22] MEDS ORDERED: PEPCID40 MG PO (10:14)
--- NOTE | 2019-06-22 10:31 | NUR ---
EKG DONE UPON PT ARRIVAL AND REVIEWED BY DR MOSS, PT IS IN SINUS RHYTHM, PROCEDURE CANCELLED PER DR MOSS.
--- NOTE | 2019-06-22 11:07 | NUR ---
1054 DR MOSS HAS ROUNDED ON PT, INSTRUCTED HER TO STOP HER ELIQUIS AND FOLLOW UP IN CLINIC IN 2 WEEKS WITH MICHELLE. DC INSTRUCTIONS REVIEWED WITH PT AND CAREGIVER WHO VERBALIZE UNDERSTANDING. PT ESCORTED TO PRIVATE AUT[employer] VIA WC BY NURSE WITH CAREGIVER DRIVING HER HOME. PT HAS ALL PERSONAL BELONGINGS AND DC INSTRUCTIONS AT TIME OF DISCHARGE.
== END 2019-06-22 10:57 | disposition home or self-care (01) ==
LOC: D.CATH 09:49
PROVIDERS: ATTEND Internal Medicine Interventional Cardiology
DX: I48.91 Unspecified atrial fibrillation (principal)

== ENCOUNTER 2019-06-28 09:05 | Inpatient (IN) | payer MEDICARE ==
[2019-06-28] VITALS (12 sets, daily range): BP systolic 123–149; BP diastolic 48–88; BMI 29.4
[~2019-06-28] VITALS: Ht 168.9 cm; Wt 89.5 kg
[2019-06-28 09:51] LABS: BASOPHILS 0.3 % (0-2); EOSINOPHILS 1.2 % (0-7); IMMATURE GRANULOCYTES 0.1 % (0-5); LYMPHOCYTES 15.3 % (15-50); MCH 28.7 pg (26.0-34.0); MCHC 29.8 g/dL (31.0-37.0); MCV 96.1 fL (80.0-100.0); MEAN PLATELET VOLUME 9.1 fL (7.4-10.4); MONOCYTES 6.5 % (2-11); NEUTROPHILS 76.6 % (40-80); PLATELET COUNT 171 10x3/uL (130-400); WBC 6.8 10x3/uL (4.8-10.8)
[2019-06-28 09:52] LABS: RBC 1.78 10x6/uL (4.00-5.40)
[2019-06-28 09:53] LABS: HEMATOCRIT 17.1 % (36.0-48.0); HEMOGLOBIN 5.1 g/dL (12-16)
--- NOTE | 2019-06-28 09:53 | NUR ---
NOTIFIED OF CRITICAL LABS: RBC 1.78, HGB 5.1, HCT 17.1 EDP NOTIFIED OF RESULTS, CRIITICAL LAB SHEET COMPLETED AND PLACED ON PT'S CHART.
[2019-06-28 10:03] LABS: APTT 25.3 SECONDS (22.8-39.4); INR 1.18 (0.85-1.17); PROTIME 14.4 SECONDS (11.6-15.0)
--- NOTE | 2019-06-28 10:05 | NUR ---
GUAC OCCULT BLD. STOOL SAMPLE POSITIVE, EDP NOTIFIED.
[2019-06-28 10:16] LABS: ALBUMIN 2.7 g/dL (3.4-5.0); ALKALINE PHOSPHATASE 63 U/L (46-116); ALT (SGPT) 16 U/L (10-68); BILIRUBIN - TOTAL 0.39 mg/dL (0.2-1.3); CALC OSMOLALITY 293 mosm/kg (275-300); CALCIUM 8.3 mg/dL (8.5-10.1); CARBON DIOXIDE 22.9 mmol/L (21.0-32.0); CHLORIDE - SERUM 110 mmol/L (98-107); CREATININE - SERUM 1.7 mg/dL (0.6-1.3); GLUCOSE 101 mg/dL (74-106); POTASSIUM - SERUM 4.2 mmol/L (3.5-5.1); PROTEIN - SERUM 6.2 g/dL (6.4-8.2); SODIUM 143 mmol/L (136-145); UREA NITROGEN 37 mg/dL (7-18); eGFR NON AFRICAN AMERICAN 30 mL/min (90-120)
[2019-06-28 10:22] LABS: CKMB 1.3 U/L (0.0-3.6); CREATINE KINASE 90 UL (21-215); MAGNESIUM - SERUM 2.1 mg/dL (1.8-2.4); PRO BNP 6718 pg/mL (0-450); TROPONIN-I < 0.017 ng/mL (0.000-0.060)
--- NOTE | 2019-06-28 11:15 | NUR ---
PT BACK TO ED AT THIS TIME.
--- NOTE | 2019-06-28 11:47 | MORECARE ---
CASE MANAGEMENT DISCHARGE SUMMARY PATIENT: CRIS RUANO UNIT: [id number] ADM DATE: 06/28/19 AGE: 89 : 31 SEX: F ROOM/BED: D.2304 AUTHOR: BIPIN MARIE PHYSICIAN: REFERRING PHYSICIAN: COSME MEADOWS MD DATE OF SERVICE: 06/28/19 Discharge Plan Patient Name: CRIS RUANO Facility: [facility]:[place] : 1930 Planned Disposition: Assisted Living Anticipated Discharge Date: 06/30/19 Discharge Date: Expected LOS: 2 Initial Reviewer: [email or web address] Initial Review Date: 06/28/2019 Generated: 06/28/19 12:47 pm Patient Name: CRIS RUANO Page 86015 at 1147 All edits/amendments must be made on the electronic document DICTATION DATE: 06/28/19 1147 STUDIO OPERATOR: NARCISO 06/28/19 1147 RPT#: [id number] DC DATE: STATUS: ADM IN [facility] [address] [place] [address] END OF REPORT
--- NOTE | 2019-06-28 11:54 | MORECARE ---
CASE MANAGEMENT DISCHARGE SUMMARY PATIENT: CRIS RUANO UNIT: [id number] ADM DATE: 06/28/19 AGE: 89 : 31 SEX: F ROOM/BED: D.2304 AUTHOR: FRANK,DOC PHYSICIAN: REFERRING PHYSICIAN: COSME MEADOWS MD DATE OF SERVICE: 06/28/19 Discharge Plan Patient Name: CRIS RUANO Facility: [facility]:[place] : 1930 Planned Disposition: Assisted Living Anticipated Discharge Date: 06/30/19 Discharge Date: Expected LOS: 2 Initial Reviewer: [email or web address] Initial Review Date: 06/28/2019 Generated: 06/28/19 12:53 pm DCP- Discharge Planning Updated by [email or web address]: Elidia Farah on 06/28/19 10:[address] DC PLAN: Return to [facility] ANTICIPATED DC NEEDS: CG denied known dc needs. CM met with patient's caregiver Mahogany Barger to complete initial dc planning assessment. Patient is in [place] at time of assessment. CM educated Mahogany on the CM role and verbal consent given by Mahogany to complete assessment. CM verified patient's address, phone number, and emergency contact phone numbers. Patient lives at [facility]. She has a private caregiver, Mahogany, that assists her with all her transportation and shopping needs. She also does her laundry for her. At discharge patient plans to return to [facility] and feels this is a safe discharge. CM discussed availability of home health, rehab services, and medical equipment. Mahogany denied known discharge needs at this time. Mahogany reports she will transport her home at time of discharge. CM will continue to follow and will assist as needed with dc plans/needs. Elidia Farah RN, [facility] DCPIA - Discharge Planning Initial Assessment Updated by [email or web address]: Elidia Farah on 06/28/19 11:47 am * Is the patient Alert and Oriented? Yes * How many steps to enter\exit or inside your home? None * PCP Dr. Dorantes * Pharmacy [facility] on [address] * Preadmission Environment Assisted Living * Facility Name [facility] * ADLs Independent * Equipment Cane Rolling Walker * List name and contact numbers for known caregivers / representatives who currently or will assist patient after discharge: Mahogany Barger - private cg - [phone] * Verbal permission to speak to the caregivers and representatives has been obtained from the patient. Yes * Community resources currently utilized Private Duty Care * Additional services required to return to the preadmission environment? No * Can the patient safely return to the preadmission environment? Yes * Has this patient been hospitalized within the prior 30 days at any hospital? Yes Last DP export: 06/28/19 10:47 a Patient Name: CRIS RUANO Page [phone] at 1154 All edits/amendments must be made on the electronic document DICTATION DATE: 06/28/19 1153 TAB CUTTER: NARCISO 06/28/19 1153 RPT#: [id number] DC DATE: STATUS: ADM IN [facility] [address] [place] [address] END OF REPORT
--- NOTE | 2019-06-28 12:10 | NUR ---
PATIENT ARRIVED TO UNIT.
--- NOTE | 2019-06-28 12:34 | NUR ---
ESTUARDO JUAN PER DR ABDIEL REID
--- NOTE | 2019-06-28 13:14 | NUR ---
paged dr rhodes.
--- NOTE | 2019-06-28 13:16 | NUR ---
DR GIBBS ORDERED NPO
--- NOTE | 2019-06-28 15:17 | NUR ---
REASSESSMENT COMPLETE, NO CHANGES NOTED, PT RESTING AT THIS TIME, VSS, CALL LIGHT IN REACH
--- NOTE | 2019-06-28 15:45 | NUR ---
dr rhodes at bedside. egd team at bedside preparing patient.
--- NOTE | 2019-06-28 15:45 | NUR ---
preop meds given
--- NOTE | 2019-06-28 16:29 | NUR ---
REPORT RECEIVED. EGD TEAM AT BEDSIDE. VSS. WILL CONT TO MONITOR.
--- NOTE | 2019-06-28 16:55 | NUR ---
REPORT GIVEN TO MARIA VICTORIA RUFFIN
--- NOTE | 2019-06-28 17:00 | NUR ---
PT EATING FULL LIQUID MEAL TRAY. NO NEEDS OR DISTRESS NOTED AT THIS TIME. WILL CONT TO MONITOR.
--- NOTE | 2019-06-28 17:00 | NUR ---
BEDSIDE REPORT RECEIVED. PT RESTING. NO NEEDS OR DISTRESS NOTED AT THIS TIME. WILL CONT TO MONITOR.
--- NOTE | 2019-06-28 19:00 | NUR ---
BEDSIDE REPORT AND SHIFT ASSESSMENT COMPLETE, SEE FLOWSHEET. L FOREARM PIV WNL, PROTONIX @ 10. 02 SAT 100 ON 3.5 L NC. VSS, NO SIGNS OF ACUTE DISTRESS NOTED. PT ATE 50% OF FULL LIQUID TRAY, STATES SHE IS FULL AND DOES NOT WANT ANYTHING ELSE. DENIES ANY NEEDS AT THIS TIME, WILL CONTINUE TO MONITOR.
--- NOTE | 2019-06-28 22:00 | NUR ---
MEDS GIVEN PER MAR. PT DENIES NEEDS AT THIS TIME, CALL LIGHT IN REACH.
--- NOTE | 2019-06-28 22:30 | NUR ---
ASSISTED PT TO BEDSIDE COMMODE AND BACK TO BED, UOP [place]LIN.
[2019-06-29] VITALS (16 sets, daily range): BP systolic 118–163; BP diastolic 40–82; BMI 31.3
--- NOTE | 2019-06-29 01:00 | NUR ---
MEDS GIVEN PER MAR. VSS, NO SIGNS OF ACUTE DISTRESS NOTED. CALL LIGHT IN REACH, WILL CONTINUE TO MONITOR.
--- NOTE | 2019-06-29 03:00 | NUR ---
REASSESSMENT COMPLETE, SEE FLOWSHEET. VSS, NO SIGNS OF ACUTE DISTRESS NOTED. PT SLEEPING, EASY TO AROUSE - DENIES ANY NEEDS AT THIS TIME. WILL MONITOR.
[2019-06-29 04:13] LABS: BASOPHILS 0.3 % (0-2); EOSINOPHILS 1.4 % (0-7); HEMATOCRIT 22.6 % (36.0-48.0); IMMATURE GRANULOCYTES 0.2 % (0-5); LYMPHOCYTES 21.7 % (15-50); MCH 28.8 pg (26.0-34.0); MEAN PLATELET VOLUME 9.4 fL (7.4-10.4); MONOCYTES 6.3 % (2-11); NEUTROPHILS 70.1 % (40-80); PLATELET COUNT 158 10x3/uL (130-400); RBC 2.43 10x6/uL (4.00-5.40); RDW 15.6 % (11.5-14.5); WBC 6.6 10x3/uL (4.8-10.8)
[2019-06-29 04:20] LABS: ALBUMIN 2.4 g/dL (3.4-5.0); BILIRUBIN - TOTAL 0.74 mg/dL (0.2-1.3); CALCIUM 7.9 mg/dL (8.5-10.1); CARBON DIOXIDE 22.9 mmol/L (21.0-32.0); CREATININE - SERUM 1.5 mg/dL (0.6-1.3); POTASSIUM - SERUM 3.9 mmol/L (3.5-5.1); PROTEIN - SERUM 5.4 g/dL (6.4-8.2); T4 THYROXIN - FREE 0.91 ng/dL (0.76-1.46); THYROID STIMULATING HORMONE 40.73 uIU/mL (0.36-3.74)
--- NOTE | 2019-06-29 05:00 | NUR ---
O2 SAT 100 ON 3.5 L NC. DECREASED TO 2 L NC, SAT 100. PT RESTING COMFORTABLY IN BED, WILL CONTINUE TO MONITOR.
--- NOTE | 2019-06-29 07:00 | NUR ---
BEDSIDE REPORT RECEIVED. ASSESSMENT COMPLETED PER FLOWSHEET, SEE FLOWSHEET FOR ADDITIONAL INFORMATION. PT DENIES ANY NEEDS OR DISTRESS NOTED AT THIS TIME. VSS. WILL CONT TO MONITOR.
--- NOTE | 2019-06-29 09:00 | NUR ---
PT TO BSC WITH MININAL ASSIST. NO NEEDS OR DISTRESS NOTED AT THIS TIME. VSS. WILL CONT TO MONITOR.
--- NOTE | 2019-06-29 11:00 | NUR ---
REASSESSMENT COMPLETED PER FLOWSHEET, SEE FLOWSHEET FOR ADDITIONAL INFORMATION. NO NEEDS OR DISTRESS NOTED AT THIS TIME. VSS. WILL CONT TO MONITOR.
--- NOTE | 2019-06-29 13:00 | NUR ---
AT BEDSIDE. NO NEEDS OR DISTRESS NOTED AT THIS TIME. VSS. WILL CONT TO MONITOR.
--- NOTE | 2019-06-29 14:02 | NUR ---
BLOOD INFUSING AT THIS TIME. VSS. WILL CONT TO MONITOR.
--- NOTE | 2019-06-29 14:43 | NUR ---
REPORT CALLED TO PRESLEY IN [facility]SUR. BLOOD INFUSING AT THIS TIME. NO NEEDS OR DISTRESS NOTED AT THIS TIME. VSS. WILL CONT TO MONITOR.
--- NOTE | 2019-06-29 17:43 | NUR ---
WITHOUT CHANGHES OR DISTRESS NOTED AT THIS TIME. DENIES NEEDS
--- NOTE | 2019-06-29 19:42 | NUR ---
PATIENT IS RESTING IN ROOM. NO VISIBLE SIGNS OF DISTRESS. RESPIRATION EVEN AND UNLABORED. BED IN THE LOWEST POSITION AND CALL LIGHT IN REACH.
[2019-06-29 21:15] LABS: APPEARANCE CLEAR (CLEAR); BILIRUBIN NEGATIVE (NEGATIVE); COLOR YELLOW (YELLOW); GLUCOSE NEGATIVE (NEGATIVE); KETONE NEGATIVE (NEGATIVE); NITRITE NEGATIVE (NEGATIVE); PROTEIN NEGATIVE (NEGATIVE); SPECIFIC GRAVITY 1.015 (1.005-1.020); UROBILINOGEN NORMAL (NORMAL)
[2019-06-29 21:16] LABS: BACTERIA FEW /hpf (NEGATIVE); EPITHELIAL CELLS 0-5 /hpf (0-5); RED CELLS - URINE 0-5 /hpf (0-5)
--- NOTE | 2019-06-29 23:20 | NUR ---
NOTIFIED BY MT THAT PT HAS GONE FROM SR TO 136 UNCONTROLLED A FIB. PT IN BED RESTING, ASYMPTOMATIC. CALL PLACED TO DR MOSS.
--- NOTE | 2019-06-29 23:32 | NUR ---
SPOKE WITH DR MOSS, ORDERS GIVEN TO START PT BACK ON HOME DOSE OF BETAPACE.
[2019-06-30] VITALS: BP 109/52
[2019-06-30 04:00] VITALS: BP 117/60
[2019-06-30 05:48] LABS: BASOPHILS 0.1 % (0-2); EOSINOPHILS 1.4 % (0-7); IMMATURE GRANULOCYTES 0.3 % (0-5); LYMPHOCYTES 15.6 % (15-50); MCHC 31.6 g/dL (31.0-37.0); MCV 91.9 fL (80.0-100.0); MEAN PLATELET VOLUME 9.3 fL (7.4-10.4); MONOCYTES 9.5 % (2-11); NEUTROPHILS 73.1 % (40-80); PLATELET COUNT 160 10x3/uL (130-400); RDW 16.1 % (11.5-14.5); WBC 7.7 10x3/uL (4.8-10.8)
[2019-06-30 05:49] LABS: HEMATOCRIT 28.5 % (36.0-48.0)
[2019-06-30 10:38] VITALS: BP 132/57
--- NOTE | 2019-06-30 12:24 | NUR ---
VISITOR AT BEDSIDE, TELEMERTY STILL SHOWS CAF 99. NO NEEDS VOICED. SR UP WITH CALL LIGHT IN REACH
[2019-06-30 13:50] VITALS: BP 122/57
[2019-06-30 15:12] LABS: ANION GAP 13.1 mmol/L (8-16); CALCIUM 8.2 mg/dL (8.5-10.1); CARBON DIOXIDE 22.9 mmol/L (21.0-32.0); CREATININE - SERUM 1.7 mg/dL (0.6-1.3)
[2019-06-30 17:40] VITALS: BP 128/65
--- NOTE | 2019-06-30 19:25 | NUR ---
ASSESSMENT COMPLETE, PT A&O. RESPERATIONS EVEN ON RA. IV TO LEFT ARM SL, SITE CLEAN AND DRY. PT DENIES PAIN OR NEEDS, BED LOW, CL IN REACH.
[2019-06-30 20:00] VITALS: BP 147/64
[2019-07-01 00:30] VITALS: BP 132/66
[2019-07-01 04:30] VITALS: BP 156/81
[2019-07-01 06:03] LABS: ANION GAP 15.4 mmol/L (8-16); CARBON DIOXIDE 21.7 mmol/L (21.0-32.0); CREATININE - SERUM 1.5 mg/dL (0.6-1.3); POTASSIUM - SERUM 4.1 mmol/L (3.5-5.1)
[2019-07-01 06:56] LABS: BASOPHILS 0.2 % (0-2); EOSINOPHILS 2.1 % (0-7); HEMATOCRIT 28.9 % (36.0-48.0); HEMOGLOBIN 8.9 g/dL (12-16); IMMATURE GRANULOCYTES 0.2 % (0-5); LYMPHOCYTES 18.4 % (15-50); MCH 28.7 pg (26.0-34.0); MCHC 30.8 g/dL (31.0-37.0); MCV 93.2 fL (80.0-100.0); MEAN PLATELET VOLUME 11.2 fL (7.4-10.4); MONOCYTES 8.4 % (2-11); NEUTROPHILS 70.7 % (40-80); PLATELET COUNT 139 10x3/uL (130-400); RDW 16.5 % (11.5-14.5)
--- NOTE | 2019-07-01 07:08 | NUR ---
ALERT AND ORIENTED. UP TO BS COMMODE. TELEMERTY SHOWS UCAF AT 109. TOES TO LEFT FOOT MISSING. SL TO LEFT FA. NO NEEDS VOICED. CALL LIGHT IN REACH WITH SR UP
[2019-07-01 09:39] VITALS: BP 119/62
[2019-07-01] MEDS ORDERED: SYNTHROID25 MCG PO (11:42)
[2019-07-01] MEDS ORDERED: MIRALAX17 GM PO (11:42)
[2019-07-01 12:06] VITALS: Ht 168.9 cm; Wt 89.5 kg
--- NOTE | 2019-07-01 12:44 | MORECARE ---
CASE MANAGEMENT DISCHARGE SUMMARY PATIENT: CRIS RUANO UNIT: [id number] ADM DATE: 06/28/19 AGE: 89 : 31 SEX: F ROOM/BED: D.7282 AUTHOR: BIPIN MARIE PHYSICIAN: REFERRING PHYSICIAN: COSME MEADOWS MD DATE OF SERVICE: 07/01/19 Discharge Plan Patient Name: CRIS RUANO Facility: [facility]:Welcome : 1930 Planned Disposition: Assisted Living Anticipated Discharge Date: 07/01/19 Discharge Date: Expected LOS: 3 Initial Reviewer: [email or web address] Initial Review Date: 06/28/2019 Generated: 07/01/19 1:43 pm Comments DCP- Discharge Planning Updated by [email or web address]: Josh Villarreal on 07/01/19 11:[address] Patient Name: CRIS RUANO Encounter No: [id number] : 1930 Primary Insurance: MEDICARE A & B Anticipated DC Date: 07-01-2019 Planned Disposition: INDEPENDENT LIVING External Planned Provider: [facility] DCP follow-up note: CM MET WITH PT IN ROOM TO DISCUSS DISCHARGE NEEDS AND PLANNING. CM DISCUSSED AVAILABILITY OF HOME HEALTH, REHAB SERVICES AND MEDICAL EQUIPMENT. PT DENIES DISCHARGE NEEDS. PT DENIES NEED OF HOME HEALTH, PLANS TO RETURN TO [facility] APARTMENT WITH CAREGIVER SERVICES. PT REPORTS HER FAMILY WILL TRANSPORT HOME AT DISCHARGE. IMPORTANT MESSAGE FROM MEDICARE PROVIDED AND EXPLAINED. SUSAN hCen DCP- Discharge Planning Updated by [id number]: Elidia Farah on 06/28/19 10:[address] DC PLAN: Return to [facility] ANTICIPATED DC NEEDS: CG denied known dc needs. CM met with patient's caregiver Mahogany Barger to complete initial dc planning assessment. Patient is in CT at time of assessment. CM educated Mahogany on the CM role and verbal consent given by Mahogany to complete assessment. CM verified patient's address, phone number, and emergency contact phone numbers. Patient lives at [facility]. She has a private caregiver, Mahogany, that assists her with all her transportation and shopping needs. She also does her laundry for her. At discharge patient plans to return to [facility] and feels this is a safe discharge. CM discussed availability of home health, rehab services, and medical equipment. Mahogany denied known discharge needs at this time. Mahogany reports she will transport her home at time of discharge. CM will continue to follow and will assist as needed with dc plans/needs. Elidia Farah RN, [facility] DCPIA - Discharge Planning Initial Assessment Updated by [email or web address]: Elidia Farah on 06/28/19 11:47 am * Is the patient Alert and Oriented? Yes * How many steps to enter\exit or inside your home? None * PCP Dr. Dorantes * Pharmacy [facility] on [address] * Preadmission Environment Assisted Living * Facility Name [facility] * ADLs Independent * Equipment Cane Rolling Walker * List name and contact numbers for known caregivers / representatives who currently or will assist patient after discharge: Mahogany Barger - [facility] - [phone] * Verbal permission to speak to the caregivers and representatives has been obtained from the patient. Yes * Community resources currently utilized Private Duty Care * Additional services required to return to the preadmission environment? No * Can the patient safely return to the preadmission environment? Yes * Has this patient been hospitalized within the prior 30 days at any hospital? Yes Coverage Notice Reviewer: [email or web address] Carlo Villarreal Notice Issued Date-Time: 07/01/2019 11:27 Notice Type: IM Discharge Notice Notice Delivered To: Patient Relationship to Patient: Medical Administrator Name: Delivery Method: HAND - Hand Delivered Silva Days: Prior Verbal Notification: Recipient Understood Notice: Yes Recipient Signature: Yes Med Rec Note Co-signed by Attending: Coverage Notice Comment: Reviewer: [email or web address] Carlo Villarreal Notice Issued Date-Time: 07/01/2019 11:27 Notice Type: IM Discharge Notice Notice Delivered To: Patient Relationship to Patient: Medical Administrator Name: Delivery Method: HAND - Hand Delivered Silva Days: Prior Verbal Notification: Recipient Understood Notice: Yes Recipient Signature: Yes Med Rec Note Co-signed by Attending: Coverage Notice Comment: Last DP export: 06/28/19 10:54 a Patient Name: CRIS RUANO Page [id number] at 1244 All edits/amendments must be made on the electronic document DICTATION DATE: 07/01/19 1243 WOOL HAT HYDRAULICKER: NARCISO 07/01/19 1243 RPT#: [id number] DC DATE: STATUS: ADM IN [facility] [address] [place] [place] [address] END OF REPORT
--- NOTE | 2019-07-01 12:58 | NUR ---
Nutrition Follow-up: Pt reports she was hungry this morning and ate ~50% of breakfast. Noted plans to d/c today. Diet: Regular PO intake: 25-50% Wt: 197# Last BM: 07/01 per pt Labs reviewed Meds reviewed RD following.
[2019-07-01 13:31] VITALS: BP 119/75
--- NOTE | 2019-07-01 14:18 | NUR ---
PER ADMISSIOM, IT SHOWS THAT PATIENT RECEIVED A FLU SHOT THIS YEAR.
--- NOTE | 2019-07-01 15:16 | MORECARE ---
CASE MANAGEMENT DISCHARGE SUMMARY PATIENT: CRIS RUANO UNIT: [id number] ADM DATE: 06/28/19 AGE: 89 : 31 SEX: F ROOM/BED: D.8536 AUTHOR: BIPIN MARIE PHYSICIAN: REFERRING PHYSICIAN: COSME MEADOWS MD DATE OF SERVICE: 07/01/19 Discharge Plan Patient Name: CRIS RUANO Facility: [facility]:[place] : 1930 Planned Disposition: Assisted Living Anticipated Discharge Date: 07/01/19 Discharge Date: Expected LOS: 3 Initial Reviewer: [email or web address] Initial Review Date: 06/28/2019 Generated: 07/01/19 4:16 pm Comments DCP- Discharge Planning Updated by [email or web address]: Josh Villarreal on 07/01/19 11:[address] Patient Name: CRIS RUANO Encounter No: [id number] : 1930 Primary Insurance: MEDICARE A & B Anticipated DC Date: 07-01-2019 Planned Disposition: INDEPENDENT LIVING External Planned Provider: [facility] DCP follow-up note: CM MET WITH PT IN ROOM TO DISCUSS DISCHARGE NEEDS AND PLANNING. CM DISCUSSED AVAILABILITY OF HOME HEALTH, REHAB SERVICES AND MEDICAL EQUIPMENT. PT DENIES DISCHARGE NEEDS. PT DENIES NEED OF HOME HEALTH, PLANS TO RETURN TO [facility] APARTMENT WITH CAREGIVER SERVICES. PT REPORTS HER FAMILY WILL TRANSPORT HOME AT DISCHARGE. IMPORTANT MESSAGE FROM MEDICARE PROVIDED AND EXPLAINED. SUSAN Chen DCP- Discharge Planning Updated by [email or web address]: Elidia Farah on 06/28/19 10:[address] DC PLAN: Return to [facility] ANTICIPATED DC NEEDS: CG denied known dc needs. CM met with patient's caregiver Mahogany Barger to complete initial dc planning assessment. Patient is in CT at time of assessment. CM educated Mahogany on the CM role and verbal consent given by Mahogany to complete assessment. CM verified patient's address, phone number, and emergency contact phone numbers. Patient lives at [facility]. She has a private caregiver, Mahogany, that assists her with all her transportation and shopping needs. She also does her laundry for her. At discharge patient plans to return to [facility] and feels this is a safe discharge. CM discussed availability of home health, rehab services, and medical equipment. Mahogany denied known discharge needs at this time. Mahogany reports she will transport her home at time of discharge. CM will continue to follow and will assist as needed with dc plans/needs. Elidia Farah RN, [facility] DCPIA - Discharge Planning Initial Assessment Updated by [email or web address]: Elidia Farah on 06/28/19 11:47 am * Is the patient Alert and Oriented? Yes * How many steps to enter\exit or inside your home? None * PCP Dr. Dorantes * Pharmacy [facility] on [address] * Preadmission Environment Assisted Living * Facility Name [facility] * ADLs Independent * Equipment Cane Rolling Walker * List name and contact numbers for known caregivers / representatives who currently or will assist patient after discharge: Mahogany Barger - [facility] cg - [phone] * Verbal permission to speak to the caregivers and representatives has been obtained from the patient. Yes * Community resources currently utilized Private Duty Care * Additional services required to return to the preadmission environment? No * Can the patient safely return to the preadmission environment? Yes * Has this patient been hospitalized within the prior 30 days at any hospital? Yes Coverage Notice Reviewer: [email or web address] Carlo Villarreal Notice Issued Date-Time: 07/01/2019 11:27 Notice Type: IM Discharge Notice Notice Delivered To: Patient Relationship to Patient: Station Engineer Chief Name: Delivery Method: HAND - Hand Delivered Silva Days: Prior Verbal Notification: Recipient Understood Notice: Yes Recipient Signature: Yes Med Rec Note Co-signed by Attending: Coverage Notice Comment: Reviewer: [email or web address] Carlo Villarreal Notice Issued Date-Time: 07/01/2019 11:27 Notice Type: IM Discharge Notice Notice Delivered To: Patient Relationship to Patient: Station Engineer Chief Name: Delivery Method: HAND - Hand Delivered Silva Days: Prior Verbal Notification: Recipient Understood Notice: Yes Recipient Signature: Yes Med Rec Note Co-signed by Attending: Coverage Notice Comment: Last DP export: 07/01/19 11:44 Patient Name: CRIS RUANO Page [id number] at 1516 All edits/amendments must be made on the electronic document DICTATION DATE: 07/01/199 CANDLE MOLDER: NARCISO 07/01/191514 RPT#: [id number] DC DATE: STATUS: ADM IN [facility] [address] [place] [address] END OF REPORT
--- NOTE | 2019-07-01 16:16 | NUR ---
PT DISCHARGED. IV DCD AND INSTRUCTIONS GIVEN TO PT. TO BUS PER WHEELCHAIR
--- NOTE | 2019-07-04 11:10 | CN ---
PATIENT NAME:CRIS VALDES MEDICAL RECORD: [id number] : [birth year] LOCATION:D. D.2119 ADMIT DATE: 06/28/19 ACCOUNT: [id number] CONSULTING PHYSICIAN: ISSA MOSS MD REFERRING PHYSICIAN: COSME MEADOWS MD DATE OF CONSULTATION: 07/01/2019 DIAGNOSES: 1. Gastrointestinal bleed, upper, acute. 2. Eliquis anticoagulation. 3. Paroxysmal atrial fibrillation. 4. Bradycardia. 5. Valvular heart disease, mitral regurgitation. 6. Hypertension. 7. Cardiomyopathy. HISTORY OF PRESENT ILLNESS: Mrs. Valdes presents with acute GI bleed. She underwent endoscopy revealing only gastritis. She was treated medically. From a cardiac standpoint, she has a history of atrial fibrillation. It appears that this is paroxysmal atrial fibrillation. She was previously on sotalol 80 mg b.i.d. when she presented, she was bradycardic. She has gone in and out of atrial fibrillation since being here, but it is currently in sinus rhythm. She is on 40 mg b.i.d. of the sotalol. She has had no further episodes of bradycardia. She has been hemodynamically stable. Eliquis has been on hold secondary to the GI bleed. PHYSICAL EXAMINATION: CONSTITUTIONAL/GENERAL APPEARANCE: Well nourished, well developed, appears stated age. EYES: Lids and conjunctivae noninjected. No discharge. No pallor. ENT: Lips within normal limit. No cyanosis. No pallor. NECK: Carotid arteries, bilateral normal upstroke. No bruits. No thrills. No jugular venous pressure or distention. CERVICAL LYMPH NODES: Nontender. Nonenlarged. THYROID: Not enlarged. No nodules. CARDIOVASCULAR: Precordial exam, nondisplaced. No heaves or pericardial thrills. Rate and rhythm, regular. Heart sounds, normal S1, normal S2. No S3, no gallop, no rub. Systolic murmur, not heard. Diastolic murmur, not heard. RESPIRATORY: Respiratory effort, unlabored. Normal curvature. No thoracic deformity. No chest wall tenderness. Percussion, resonant. Auscultation, clear. No wheezes, no rales, no rhonchi. ABDOMEN: Soft, nondistended, nontender. No abdominal pain, no vomiting and normal appetite. MUSCULOSKELETAL: No joint tenderness, normal gait, normal tone. SKIN: Warm and dry. OVERALL IMPRESSION: 1. Eliquis anticoagulation. At this time, the risk of bleeding outweighs the risk of stroke. Agree with leaving her off Eliquis. 2. Bradycardia. Agree with decreasing the sotalol to 40 mg b.i.d. to hold her in sinus rhythm as best possible and not have symptomatic bradycardia. 3. Congestive heart failure and cardiomyopathy. She has been asymptomatic with this. She has no pulmonary edema, no shortness of breath, no peripheral edema. No signs or symptoms of congestive heart failure, it is stable. 4. Valvular heart disease, mitral regurgitation. Stable from this standpoint CONSULT REPORT [id number] CRIS VALDES with no severe shortness of breath or complex dysrhythmias. Continue her current medical regimen that she is on. From a cardiac standpoint, follow up with cardiology as previously scheduled. TRANSINT:[id number] Voice Confirmation ID: [id number] DOCUMENT ID: [id number] ISSA MOSS MD at 1110 CC: [id number] DICTATION DATE: 07/01/19 1205 SENIOR IT ENGINEER: 07/01/19 1217 DIS IN 07/01/19 [facility] [address] [place] [address]
--- NOTE | 2019-07-04 11:10 | EC ---
PATIENT:CRIS RUANO DATE OF SERVICE: 06/28/19 SEX: F MEDICAL RECORD: [id number] DATE OF : [birth year] LOCATION:D. D.211 AGE OF PATIENT: 89 ADMISSION DATE: 06/28/19 REFERRING PHYSICIAN: INTERPRETING PHYSICIAN: ISSA LIU MD ECHOCARDIOGRAM REPORT ECHO CHARGES 5 ECHO LIMITED Date: 07/01/19 1 DOPPLER ECHO COLOR FLOW 2 DOPPLER ECHO PULSE CLINICAL DIAGNOSIS: CHF/A-FIB ECHOCARDIOGRAPHIC MEASUREMENTS (adult normal given) AC root (d.<3.7cm) 0 cm LV Septum d (<1.2 cm> 0 cm Valve Excursion 0 cm LV Septum (systole) 0 cm Left Atria (s.<4.0cm> 0 cm LVPW d(<1.2cm) 0 cm RV (d.<2.3cm) 0 cm LVPW (sytole) 0 cm LV diastole(<5.6CM) 0 cm MV E-F(>70mm/sec) 0 cm LV systole 0 cm LVOT Diameter 0 cm MV exc.(>10mm) 0 cm Est.ejection fraction (50-75%) 0 % DOPPLER: LVIT 0 cm/sec A 0 cm/sec E 0 cm/sec LA 0 cm/sec RVSP 50.4 mmHg LVOT 0 cm/sec AOP1/2T 0 m/s Asc. Ao 0 cm/sec RVOT 0 cm/sec RA 0 cm/sec PA 0 cm/sec AV Gradient Peak 0 mmHg AV Mean 0 mmHg AV Area 0 cm MV Gradient Peak 0 mmHg MV Mean 0 mmHg MV Area 0 cm COMMENTS: LIMITED STUDY (2-D,COLOR,DOPPLER) COMPLETE ECHO DONE ON 06/17/19 Environmental Field Services Technician: Elvia PASTRANAOE Ceramic Engineering Professor: 1 Dr. Liu TAPE# PACS Pericardial Effusion N DATE OF SERVICE: PROCEDURE: Echocardiogram. FINDINGS: 1. Left ventricular chamber size is dilated. Left ventricular systolic function is markedly reduced, overall ejection fraction 20%. 2. Left atrium, right atrium and right ventricular chamber sizes are dilated giving 4-chamber dilatation. 3. Valvular structures have normal structure and motion. ECHOCARDIOGRAM REPORT [id number] CRIS RUANO 4. Doppler interrogation reveals moderate mitral regurgitation, moderate to severe tricuspid regurgitation, no other valvular insufficiency or stenosis. Pulmonary systolic pressure is estimated at 50 mmHg. 5. No evidence of pericardial effusion or left ventricular thrombus. TRANSINT:[id number] Voice Confirmation ID: [id number] DOCUMENT ID: [id number] ISSA LIU MD at 1110 CC: [id number] DICTATION DATE: 07/01/19 1309 CHILDBIRTH AND INFANT CARE TEACHER: 07/01/19 1333 DIS IN 07/01/19 [facility] [address] [place] [id number]
== END 2019-07-01 16:18 | disposition home or self-care (01) | DRG 377 ==
LOC: D.ER 09:05 → D.M2 10:55 → D.ICU 10:55 → D.M2 06-29 15:06
PROVIDERS: Family Medicine; Internal Medicine Gastroenterology; ADMIT Internal Medicine Nephrology; ATTEND Internal Medicine Nephrology
PROC: 0DJ08ZZ Inspection of Upper Intestinal Tract, Via Natural or Artificial Opening Endoscopic (ICD-10-PCS; principal; 2019-06-28 14:31)
DX: K92.2 Gastrointestinal hemorrhage, unspecified (principal); I50.23 Acute on chronic systolic (congestive) heart failure; D62 Acute posthemorrhagic anemia; N17.9 Acute kidney failure, unspecified; I42.9 Cardiomyopathy, unspecified; I13.0 Hypertensive heart and chronic kidney disease with heart failure and stage 1 through stage 4 chronic kidney disease, or unspecified chronic kidney disease; I45.4 Nonspecific intraventricular block; R06.00 Dyspnea, unspecified; I48.91 Unspecified atrial fibrillation; E03.9 Hypothyroidism, unspecified; K29.70 Gastritis, unspecified, without bleeding; K44.9 Diaphragmatic hernia without obstruction or gangrene; N18.9 Chronic kidney disease, unspecified; K59.00 Constipation, unspecified

== ENCOUNTER 2019-07-12 10:57 | Outpatient (CLI) | payer MEDICARE ==
[~2019-07-12] VITALS: Ht 168.9 cm; Wt 87.7 kg
[~2019-07-12 10:57] MED LIST changes: +MIRALAX17 GM PO; +SYNTHROID25 MCG PO
[2019-07-12 11:34] VITALS: Ht 168.9 cm; Wt 87.7 kg
--- NOTE | 2019-07-12 14:27 | NUR ---
1400 IV REMOVED AND INSTRUCTIONS GIVEN TO PT AND PT NOTED REDNESS TO LEFT LOWER LEG AND DAUGHTER STATED THE DOCTOR IS AWARE OF THIS. DENIES PAIN. NO SWELLING NOTED.
== END 2019-07-12 14:15 | disposition home or self-care (01) ==
LOC: D.OPS 10:57
PROVIDERS: ATTEND Family Medicine
DX: D64.9 Anemia, unspecified (principal)